=== PATIENT | male | born 1940 | race Caucasian/White ===

== ENCOUNTER 2017-05-30 09:58 | Inpatient (IN) ==
[2017-05-30 10:57] LABS: Basophils # (Auto) 0 K/mcL (0.0-0.3); Basophils % (Auto) 0.1 % (0.0-2.0); Eosinophils # (Auto) 0.1 K/mcL (0.0-0.7); Eosinophils % (Auto) 0.7 % (0.0-7.0); Granulocytes % (Auto) 76.8 % (38.0-78.0); Lymphocytes # (Auto) 0.9 K/mcL (1.5-4.8); Lymphocytes % (Auto) 10.2 % (15.5-49.0); Mean Cell Volume 88.6 fL (80.0-100.0); Mean Corpuscular HGB Conc 32.7 g/dL (31.0-36.0); Monocytes # (Auto) 1.1 K/mcL (0.1-0.9); Monocytes % (Auto) 12.2 % (1.0-12.0); Platelet Count 183 K/mcL (140-440); RBC 3.89 M/mcL (4.50-5.90)
--- NOTE | 2017-05-30 11:13 | XRay Report ---
CLINICAL INFORMATION: Wheezing and weakness COMPARISON: Two-view chest x-ray from 12/01/2014 and portable chest 10/19/2016 FINDINGS: Marked cardiomegaly is increased previous study. Automatic cardiac defibrillator and leads in stable satisfactory position. Mediastinal widening noted. Pulmonary vessels are mildly distended. There is minimal perihilar edema. Large infiltrate posterior right lower lobe noted Small bilateral pleural effusions noted. IMPRESSION: Moderate CHF Large infiltrate - right lower lobe Interpreted and Authenticated by: Paul Roberts 05/30/17
[2017-05-30 11:22] LABS: ALT/SGPT 19 U/l (0-40); Albumin 3.5 gm/dL (3.2-5.2); Albumin/Globulin Ratio 1.1 (1.0-2.3); Alkaline Phosphatase 72 U/L (39-117); Blood Urea Nitrogen 40 mg/dl (8-23)
[2017-05-30] MEDS ORDERED: LEVOFLOXACIN 500 MG/100 ML BAG IV ONE (11:46)
--- NOTE | 2017-05-30 12:35 | Internal Med History&Physical ---
Medical - H&P: HPI Patient information: Note initiated : 05/30/17 at 12:34 pm Service Date, if different from initiated Date: [] Patient: Vinh Meza 77 y/o M admitted on for Fever, SOB. Chief Complaint: [] History of present illness: Mr. Meza is a 77 year old man with a significant cardiac history, including IN with cardiac arrest and AICD placement in 1994, status post CABG, congestive heart failure, atrial fibrillation whose reports that he has had a mild cough for about 2 months now. He notes some time over that. He has felt a little short of breath with activities, but nothing too impressive. About 4 days ago, he did develop some increasing shortness of breath and increased chest congestion. His said he ran a temperature of 102.6 for a couple of days. He is bringing up phlegm only occasionally, which is brownish in color and may have some blood streaks. He has noticed increased dyspnea with exertion , but is not sure if he also has orthopnea. He also reports some mild abdominal discomfort, which is fairly diffuse, over the same.. He says he normally has 1-2 bowel movements a day, and last bowel movement was yesterday. He denies significant chest pain or palpitations. He last saw his threader operator probably in December of this year, in [place], Dr. Adhikari at [facility]. He thinks his last stress test was a few years ago, and believes that looked fine. ER evaluation showed a chest x-ray consistent with congestive heart failure as well as a fairly dense right lower lobe infiltrate. He does drop his O2 saturations into the 80s with even minimal exertion. He is now admitted for further workup and treatment. He otherwise denies headaches or dizziness, new eye or ear symptoms, sore throat , chest pain or palpitations, nausea or vomiting, diarrhea or constipation. 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 His chart says he has type 2 diabetes, but he and his are both fairly insistent that he has never had diabetes. Medical History Coronary artery disease, status post IN and arrest in 1994, status post 2 or 3 vessel CABG, history of ventricular tachycardia, status post AICD placement, now followed by Dr. Adhikari at [facility]. History of A. fib atrial fibrillation and systolic congestive heart failure. Long-term anticoagulation therapy, with both warfarin and Plavix and aspirin. His says cardiology no longer follows this, but his primary care doctor keeps his INR below 2. She says he was on Coumadin when he had some other type of cardiac event, and they added Plavix at that point. This was around the time of a pacemaker placement she believes. Peripheral neuropathy. History of colon polyps. Hypertension. history of osteoarthritis and chronic back pain. History of reported peripheral vascular disease, diagnosed in his legs not long ago. Acute sinusitis (Acute) Recent diagnosis of a left upper face basal cell carcinoma. Blepharitis (Acute) Clostridium difficile enterocolitis September 2016. Dysmetabolic syndrome X (Acute) Gastritis, acute (Acute) Nonspecific abdominal pain (Acute) Visual disturbance (Acute) ?? DMII (diabetes mellitus, type 2) (Chronic) Hyperlipidemia (Chronic) Stasis dermatitis of left lower extremity due to peripheral venous hypertension (Chronic) Pneumonia (Resolved) 12-01-2014: Dr. Simon Sepsis (Resolved) 12-01-2014: Dr. Simon Testosterone deficiency (Resolved) Total or mature cataract (Resolved) Surgical History H/O esophagogastroduodenoscopy (Resolved 02/12/14) History of appendectomy (Resolved) History of open heart surgery (Resolved) 2 vessel Hx of tonsillectomy (Resolved) S/P implantation of automatic cardioverter/defibrillator (AICD) (Resolved) S/P skin biopsy (Resolved 05/09/14) Left forehead Mohs Medication List Aspirin 81 mg daily clopidogrel 75 mg PO QDAY diphenhydramine (Benadryl) 25 mg PO QHS PRN furosemide 40 mg PO BID gabapentin 300 mg (3 x 100 mg) PO TID hydrocodone-acetaminophen 10-325 mg 1 tab PO Q4H PRN lisinopril 5 mg (1/2 x 10 mg) PO QDAY lorazepam 0.5 mg PO BID metoprolol succinate ER 100 mg PO BID polyethylene glycol 3350 527 GM PO DAILY PRN potassium chloride ER 10 mEq PO Q48H pravastatin 5 mg PO QHS warfarin (Coumadin) 5 mg PO QDAY Allergies/Adverse Reactions Patient appears to have had a reaction to Levaquin in the ER today. Family History Type 2 diabetes mellitus Hyperlipidemia Coronary artery disease. Social History smoking status: Former smoker, for approximately 30 years, quit around 1994. He has been using chewing tobacco since then. He does not use alcohol or drugs. He is and lives with his . They have 5 grown children. Medical - H&P: Meds Home Medications Medication Instructions Recorded Confirmed Type pravastatin 10 mg tablet 5 mg PO QHS tab 05/10/15 05/30/17 History lisinopril 10 mg tablet 5 mg PO QDAY #90 tab 08/10/16 05/30/17 Rx Polyethylene Glycol 3350 [Miralax] 527 gm PO DAILY PRN 09/29/16 05/30/17 History Potassium Chloride [K-Tab ER] 10 meq PO Q48H 09/29/16 05/30/17 History Levofloxacin [Levaquin] 500 mg PO Q48H #2 tab 10/22/16 05/30/17 Rx Vancomycin Oral Elham 500 mg PO Q6 #60 bottle 10/22/16 05/30/17 Rx diphenhydramine 25 mg capsule 25 mg PO QHS PRN #60 cap 11/04/16 05/30/17 Rx lorazepam 0.5 mg tablet 0.5 mg PO BID #60 tab 11/04/16 05/30/17 Rx metoprolol succinate ER 100 mg 100 mg PO BID #60 tab 11/24/16 05/30/17 Rx tablet,extended release 24 hr clopidogrel 75 mg tablet 75 mg PO QDAY #90 tab 02/23/17 05/30/17 Rx furosemide 40 mg tablet 40 mg PO BID #60 tab 03/23/17 05/30/17 Rx gabapentin 100 mg capsule 300 mg PO TID #90 cap 05/24/17 05/30/17 Rx hydrocodone 10 mg-acetaminophen 1 tab PO Q4H PRN #120 tab 05/26/17 05/30/17 Rx 325 mg tablet Aspirin [Adult Low Dose Aspirin EC] 81 mg PO DAILY 05/30/17 05/30/17 History Triamcinolone Cream 0.1% 15G 1 dose TOPICAL BID 05/30/17 05/30/17 History [Kenalog Cream 0.1%] Warfarin [Coumadin] 5 mg PO DAILY 05/30/17 05/30/17 History Allergies Allergy/AdvReac Type Severity Reaction Status Date / Time levofloxacin [From Levaquin] AdvReac Intermediate Rash Verified 05/30/17 13:25 Medical - H&P: Exam - Constitutional Vitals: Temp Pulse Resp BP Pulse Ox 97.6 F 72 16 131/81 96 05/30/17 12:09 05/30/17 12:01 05/30/17 12:01 05/30/17 12:01 05/30/17 12:01 On exam, the patient appears to be in moderate respiratory distress. He has a frequent, wet sounding, rather weak cough. He often closes his eyes. Head: Normocephalic, atraumatic. Ears: TMs and canals are clear. Eyes: PERRLA, EOMI, anicteric. Pharynx: He is missing most of his teeth, but has a few left in the lower jaw. Posterior pharynx appears clear. Pharynx is crowded. Neck: Is supple, without obvious JVD, lymphadenopathy, thyromegaly. He may have a soft right-sided carotid bruit, but the room was rather noisy so this is not definite. Cardiac exam: Shows an irregular rhythm, with what sounds like fairly frequent ectopy. I do not hear definite murmurs, rubs, gallops. Chest also shows a pacemaker present in the left upper chest. He also has a sternotomy scar from previous surgery. Lungs: He has fairly diffuse rhonchi and crackles heard throughout both lung osuna. Reading is somewhat labored. I do not hear definite wheezing. Abdomen: Is rather markedly obese and protuberant. There is no guarding or rebound, but he has vague diffuse tenderness. Bowel sounds are active. There is a tiny umbilical hernia noted. Shoemaker catheter is draining clear urine. Extremities: He has about 2+ pitting edema at the ankles, as well as chronic stasis dermatitis. Pulses are diminished. Neurologic: The patient is awake and alert, but seems to drift off occasionally. His answers are appropriate. He is otherwise calm and cooperative. Cranial nerves are grossly intact. Motor strength appears symmetric, but generally diminished. Medical - H&P: Reslt - Labs CBC & Chem 7: 05/30/17 10:20 05/30/17 10:20 Labs: Short CBC 05/30/17 Range/Units 10:20 WBC 9.1 (4.5-11.0) K/mcL Hgb 11.3 L (13.5-16.5) g/dL Hct 34.4 L (41.0-55.0) % Plt Count 183 (140-440) K/mcL BMP 05/30/17 10:20 Sodium 139 Potassium 4.2 Chloride 100 Carbon Dioxide 26 BUN 40 H Creatinine 1.7 H Glucose 114 H Calcium 9.0 Liver Function 05/30/17 Range/Units 10:20 Total Bilirubin 1.1 H (0.0-1.0) mg/dL AST 28 (0-37) U/l ALT 19 (0-40) U/l Alkaline Phosphatase 72 (39-117) U/L Albumin 3.5 (3.2-5.2) gm/dL May 30: On CBC differential, RDW is elevated at 17. Granulocyte count is normal. Lymphocyte count is low at 900. Monocyte count is mildly elevated at 1100. Pro time is 18, with INR of 1.5 ProBNP is elevated at 5300. Lactic acid is normal at 0.9 Pro-calcitonin is elevated at 5.73, consistent with sepsis. surveillance system monitor showing frequent ventricular ectopy, and occasional runs of what looks like V. tach. These terminate spontaneously. Temperature was 99.8. Pressure initially 118/69, but then dipped to 85/49, and most recent is 116/61. Respiratory rate around 20, and slightly labored. O2 saturation 94% on 3 L nasal cannula Baseline creatinine over the last year seems to fluctuate between 1.4 and 1.7. EKG: Shows what appears to be a paced rhythm with occasional ventricular ectopy. Left axis deviation. Waveforms are slightly different when compared to October 23, 2016, but the overall pattern is similar. Chest x-ray: Shows worsening cardiomegaly compared to December 2014 and September 2016. Cardiac defibrillator is noted. Mediastinal widening is noted. Pulmonary vessels are mildly distended consistent with CHF. There is a large posterior right lower lobe infiltrate noted with small bilateral pleural effusions noted. Medical - H&P: A/P (1) RLL pneumonia Current visit: Yes Status: Acute (2) Abdominal pain Current visit: Yes Status: Acute (3) Heart failure, systolic, with acute decompensation Current visit: No Status: Acute (4) long-term current use of anticoagulant therapy Current visit: No Status: Chronic (5) CAD (coronary artery disease) Current visit: No Status: Chronic (6) Hypertension, essential Current visit: No Status: Chronic - Narrative A/P Narrative: #1. Pulmonary/infectious disease. This patient presents with fever and x-ray evidence of right lower lobe pneumonia. He also has signs of early sepsis, with hypotension, fever, elevated pro-calcitonin. -Admit to telemetry. -Reviewed CODE STATUS: And for now he wants to be a full code. If he develops increasing respiratory distress, we will certainly try BiPAP initially. -I think he is at risk for aspiration, so elected to use Zosyn, in addition to Zithromax, for his community-acquired pneumonia. -Pulmonary toilet, bronchodilators, oxygen as needed. Incentive spirometry. -Check ABG. #2. Cardiac. -Patient also appears to have congestive heart failure exacerbation. Attempt mild diuresis with Lasix. Shoemaker catheter placed. Monitor on telemetry. Repeat troponin in 6 hours. Consider follow-up echocardiogram. -Coronary artery disease, ischemic cardiomyopathy, history of sudden and V. tach, history of A. fib. AICD is in place. Continue to monitor INR, but it sounds like they want him at a lower goal of perhaps 1.5. Continue Plavix and aspirin, as previously recommended by cardiology. Heart rate currently well controlled. Continue aspirin, pravastatin, Lasix, Plavix, lisinopril, metoprolol, warfarin. 3. CODE STATUS: Full code for now, his will act his POA. He would not want long-term life support. 4. DVT prophylaxis: Continue warfarin, Plavix, aspirin. 5. His chart indicates a history of diabetes, but the patient is quite adamant that he has not had diabetes. Monitor Accu-Cheks today, and discontinue if normal. 6. History of hypertension. Continue current medications, and monitor. Next 7. Peripheral neuropathy. Continue gabapentin. 8. Tobacco abuse. Patient has a past history of cigarette smoking, but has been using chewing tobacco for the last 20 years. I strongly encouraged him to quit this, and I reviewed the increased risk of head and neck cancers with the use of this. I strongly encouraged him to follow-up with a dentist sometime soon, for a thorough oral exam. -Offer NicoDerm patch. 9. Obesity. 10. GI. Patient complains of vague abdominal discomfort, and I am suspicious of possible underlying constipation. Check an abdominal film. 11. Renal. Patient presents with possible mild acute kidney injury on top of chronic kidney disease. Monitor closely, as we try to diurese him. Shoemaker catheter in place, for accurate output measurements. Today's visit has taken approximately 70 minutes to review his extensive old records, review his case with the ER MD, interview and examine him, review plan of care with the patient and his , as well as staff, and write orders.
[2017-05-30] MEDS ORDERED: ALBUTEROL SULFATE 2.5 MG/3 ML NEBULIZER NEB PRN (12:51)
[2017-05-30] MEDS ORDERED: ONDANSETRON 4 MG/2 ML VIAL IV PRN (12:51)
[2017-05-30] MEDS ORDERED: DEXTROSE 50% 50 ML VIAL IV PRN (12:51)
[2017-05-30] MEDS ORDERED: ACETAMINOPHEN 325 MG TABLET PO PRN (12:51)
[2017-05-30] MEDS ORDERED: DOCUSATE SODIUM 100 MG CAPSULE PO PRN (12:51)
[2017-05-30] MEDS ORDERED: DEXTROSE 31 GM ORAL.SUSP PO PRN (12:51)
[2017-05-30] MEDS ORDERED: MAGNESIUM HYDROXIDE 30 ML ORAL.SUSP PO PRN (12:51)
[2017-05-30] MEDS: FUROSEMIDE 100 MG/10 ML VIAL IV SCH ×2 (13:28→17:26)
[2017-05-30] MEDS: 0.9 % SODIUM CHLORIDE 10 ML SYRINGE IV SCH ×4 (13:30→21:31)
[2017-05-30] MEDS: ALBUTEROL SULFATE 2.5 MG/3 ML NEBULIZER NEB SCH ×2 (13:37→19:33)
[2017-05-30] MEDS ORDERED: WARFARIN 5 MG TABLET PO ONE (14:00)
[2017-05-30] MEDS: AZITHROMYCIN 250 MG in DEXTROSE 5% IN WATER 250 ML IV SCH (15:03)
--- NOTE | 2017-05-30 15:38 | Emergency Department Note ---
ED Note Addendum Note Addendum: I saw and discussed this patient with Karina GRIJALVA. I agree with her evaluation management documentation.
[2017-05-30 16:01] LABS: Magnesium 2.4 mg/dL (1.6-2.5)
[2017-05-30] MEDS: PIPERACILLIN SODIUM/TAZOBACTAM 3.375 GM in DEXTROSE 5% IN WATER 50 ML IV SCH ×2 (16:24→20:13)
--- NOTE | 2017-05-30 16:32 | XRay Report ---
CLINICAL INFORMATION: Abdominal pain COMPARISON: 08/26/2016 FINDINGS: The gas pattern is unremarkable. No free air, soft tissue mass or pathologic calcification or organomegaly IMPRESSION: Normal Interpreted and Authenticated by: Paul Roberts 05/30/17
[2017-05-30] MEDS: INSULIN LISPRO 1 UNIT/0.01 ML UNIT SQ SCH ×2 (17:25→20:27)
[2017-05-30] MEDS: NICOTINE 7 MG PATCH TOPICAL SCH (17:30)
[2017-05-30] MEDS ORDERED: POTASSIUM CHLORIDE 10 MEQ TABLET PO SCH (18:45)
[2017-05-30] MEDS ORDERED: POTASSIUM CHLORIDE 10 MEQ TABLET PO ONE (20:02)
[2017-05-30] MEDS ORDERED: HYDROcodone/APAP 10/325MG TABLET PO ONE (20:15)
[2017-05-30] MEDS ORDERED: POLYETHYLENE GLYCOL 3350 17 GM PACKET PO PRN (20:21)
[2017-05-30] MEDS: METOPROLOL SUCCINATE 50 MG TAB.XL.24H PO SCH (20:32)
[2017-05-30] MEDS: HEPARIN 5,000 UNIT/ML VIAL SQ SCH (20:33)
[2017-05-30] MEDS: GABAPENTIN 100 MG CAPSULE PO SCH (20:33)
[2017-05-30] MEDS: LORazepam 0.5 MG TABLET PO SCH (20:33)
[2017-05-30] MEDS: TRIAMCINOLONE CREAM 0.1% 15G 1 DOSE TUBE TOPICAL SCH (21:29)
[2017-05-30] MEDS: SIMVASTATIN 10 MG TABLET PO SCH (21:32)
[2017-05-31] MEDS: PIPERACILLIN SODIUM/TAZOBACTAM 3.375 GM in DEXTROSE 5% IN WATER 50 ML IV SCH ×4 (01:52→18:18)
[2017-05-31] MEDS: ALBUTEROL SULFATE 2.5 MG/3 ML NEBULIZER NEB SCH ×4 (01:53→18:48)
[2017-05-31] MEDS: 0.9 % SODIUM CHLORIDE 10 ML SYRINGE IV SCH ×7 (05:45→22:00)
[2017-05-31 05:51] LABS: Basophils # (Auto) 0 K/mcL (0.0-0.3); Basophils % (Auto) 0.3 % (0.0-2.0); Eosinophils # (Auto) 0.1 K/mcL (0.0-0.7); Eosinophils % (Auto) 0.9 % (0.0-7.0); Granulocytes % (Auto) 69.8 % (38.0-78.0); Lymphocytes # (Auto) 1.2 K/mcL (1.5-4.8); Lymphocytes % (Auto) 15.8 % (15.5-49.0); Mean Cell Volume 88.8 fL (80.0-100.0); Mean Corpuscular HGB Conc 32.9 g/dL (31.0-36.0); Mean Corpuscular Hemoglobin 29.2 pg (26.0-34.0); Monocytes % (Auto) 13.2 % (1.0-12.0); Platelet Count 164 K/mcL (140-440); RBC 3.59 M/mcL (4.50-5.90); Red Cell Distribution Width 17.1 % (11.5-14.5)
[2017-05-31 06:04] LABS: ALT/SGPT 24 U/l (0-40); Albumin 2.8 gm/dL (3.2-5.2); Albumin/Globulin Ratio 0.9 (1.0-2.3); Alkaline Phosphatase 71 U/L (39-117); Bilirubin,Direct 0.4 mg/dL (0.0-0.3); Blood Urea Nitrogen 38 mg/dl (8-23); Gamma Glutamyl Transpeptidase 99 U/L (8-61); Magnesium 2.4 mg/dL (1.6-2.5); Uric Acid 10.8 mg/dL (2.5-8.0)
[2017-05-31] MEDS: INSULIN LISPRO 1 UNIT/0.01 ML UNIT SQ SCH ×4 (07:56→20:46)
[2017-05-31] MEDS: FUROSEMIDE 100 MG/10 ML VIAL IV SCH ×2 (08:00→15:16)
[2017-05-31] MEDS ORDERED: POTASSIUM CHLORIDE 10 MEQ TABLET PO SCH (08:00)
--- NOTE | 2017-05-31 08:19 | XRay Report ---
CLINICAL INFORMATION: Pneumonia and CHF COMPARISON: 05/30/2017. FINDINGS: The heart is markedly enlarged - unchanged. Automatic defibrillator pacemaker in stable satisfactory position. Mediastinum is normal. The pulmonary vessels have decreased in caliber, remain mildly distended. Interstitial edema has decreased. Patchy bibasilar infiltrates have progressed IMPRESSION: Patchy bibasilar infiltrates - progressing from yesterday Improving CHF now mild Interpreted and Authenticated by: Paul Roberts 05/31/17
[2017-05-31] MEDS ORDERED: CLOPIDOGREL 75 MG TABLET PO SCH (09:00)
[2017-05-31] MEDS: ASPIRIN 81 MG TAB.CHEW PO SCH (09:14)
[2017-05-31] MEDS: METOPROLOL SUCCINATE 50 MG TAB.XL.24H PO SCH ×2 (09:18→20:44)
[2017-05-31] MEDS: CLOPIDOGREL 75 MG TABLET PO SCH (09:20)
[2017-05-31] MEDS: LISINOPRIL 10 MG TABLET PO SCH (09:21)
[2017-05-31] MEDS: GABAPENTIN 100 MG CAPSULE PO SCH ×3 (09:22→20:44)
[2017-05-31] MEDS: LORazepam 0.5 MG TABLET PO SCH ×2 (09:29→20:44)
[2017-05-31] MEDS: HEPARIN 5,000 UNIT/ML VIAL SQ SCH ×2 (09:30→20:44)
[2017-05-31] MEDS: AZITHROMYCIN 250 MG in DEXTROSE 5% IN WATER 250 ML IV SCH (09:31)
[2017-05-31] MEDS: TRIAMCINOLONE CREAM 0.1% 15G 1 DOSE TUBE TOPICAL SCH ×2 (09:52→20:44)
[2017-05-31] MEDS: NICOTINE 7 MG PATCH TOPICAL SCH (11:03)
--- NOTE | 2017-05-31 12:10 | Internal Med Progress Note ---
Medical - PN: Subj Patient information: Note initiated : 05/31/17 at 12:08 pm Service Date, if different from initiated Date: [] Patient: Vinh Meza 77 y/o M admitted on 05/30/17 for Fever, SOB/Pneumonia. Chief Complaint: [] Interval history: May 30, 2017: History of present illness: Mr. Meza is a 77 year old man with a significant cardiac history, including [place] with cardiac arrest and AICD placement in 1994, status post CABG, congestive heart failure, atrial fibrillation whose reports that he has had a mild cough for about 2 months now. He notes some time over that. He has felt a little short of breath with activities, but nothing too impressive. About 4 days ago, he did develop some increasing shortness of breath and increased chest congestion. His said he ran a temperature of 102.6 for a couple of days. He is bringing up phlegm only occasionally, which is brownish in color and may have some blood streaks. He has noticed increased dyspnea with exertion , but is not sure if he also has orthopnea. He also reports some mild abdominal discomfort, which is fairly diffuse, over the same.. He says he normally has 1-2 bowel movements a day, and last bowel movement was yesterday. He denies significant chest pain or palpitations. 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 Adhikari at [facility]. He thinks his last stress test was a few years ago, and believes that looked fine. ER evaluation showed a chest x-ray consistent with congestive heart failure as well as a fairly dense right lower lobe infiltrate. He does drop his O2 saturations into the 80s with even minimal exertion. He is now admitted for further workup and treatment. He otherwise denies headaches or dizziness, new eye or ear symptoms, sore throat , chest pain or palpitations, nausea or vomiting, diarrhea or constipation. 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 His chart says he has type 2 diabetes, but he and his are both fairly insistent that he has never had diabetes. May 31: Today, the patient continues to have significantly productive cough. He is bringing up greenish phlegm. Nurses note he continues to be fairly drowsy, and often falls asleep mid sentence. He is maintaining O2 saturations. He did diurese some overnight. He does wake up when he is spoken to, but is quite drifty. He denies fever or chills, chest pain or palpitations. He thinks his shortness of breath is better , and his thinks he sounds better than before. He denies abdominal pain, nausea or vomiting, diarrhea or constipation or dysuria. He did say that he was hungry this morning. -Nurses are somewhat concerned about the possibility of aspiration, given his lethargy. - Constitutional Vitals: Vital Signs Temp Pulse Resp BP Pulse Ox 98.4 F 70 20 112/67 93 05/31/17 11:32 05/31/17 07:27 05/31/17 07:27 05/31/17 12:01 05/31/17 12:04 Period Temp Pulse Resp BP Sys/Ornelas Pulse Ox Last 24 Hr 98.3 F-99.8 F 70-89 16-24 85-129/46-87 86-100 Intake and Output 05/30/17 05/31/17 05/31/17 21:59 05:59 13:59 Intake Total 530 / 530 200 / 200 400 / 400 Output Total 1300 / 1300 925 / 925 975 / 975 Balance -770 / -770 -725 / -725 -575 / -575 Weight 256 lb Intake & Output: Intake & Output 05/30/17 05/31/17 05/31/17 21:59 05:59 13:59 Intake Total 530 / 530 200 / 200 400 / 400 Output Total 1300 / 1300 925 / 925 975 / 975 Balance -770 / -770 -725 / -725 -575 / -575 Weight 256 lb Intake: IV 350 / 350 50 / 50 50 / 50 Zithromax 250 mg In 250 / 250 Dextrose 5% in Water 250 ml @ 250 mls/hr IV Q24H [facility] Rx#:[id number] Zosyn 3.375 gm In 100 / 100 50 / 50 50 / 50 Dextrose 5% in Water 50 ml @ 100 mls/hr IV Q6H [facility] Rx#:[id number] Oral 180 / 180 150 / 150 350 / 350 Output: Urine Catheter Amount 1300 / 1300 925 / 925 975 / 975 Other: Meal Dinner Breakfast Percent of Meal Consumed 100% 100% Feeding Ability Independent Independent # Bowel Movements 0 1 The patient is somewhat drowsy, but in no acute distress. He coughs frequently , but breathing appears nonlabored. O2 saturation is 93% on 2 L nasal cannula. He is afebrile. Neck is supple without obvious JVD or lymphadenopathy. Cardiac exam shows regular rate and rhythm. Lungs: Are less noisy than yesterday. He has decreased breath sounds at the right base. Breath sounds throughout the left side are rather coarse. Breath sounds on the right show a few crackles above the right base, and otherwise are fairly clear. Abdomen: Is obese, but soft and nontender. Extremities: Continue to show about 2+ pitting ankle edema. Neurologic exam: Patient is fairly drowsy, but exam is otherwise nonfocal. Medical - PN: Obj Da - Labs CBC & Chem 7: 05/31/17 03:48 05/31/17 03:48 Labs: Abnormal Lab Results 05/31/17 05/31/17 05/31/17 03:48 03:48 03:48 RBC 3.59 L Hgb 10.5 L Hct 31.9 L RDW 17.1 H [place] % (Auto) 13.2 H Lymph # (Auto) 1.2 L [place] # (Auto) 1.0 H PT 20.1 H INR 1.7 H BUN 38 H Creatinine 1.9 H Glucose 106 H Uric Acid 10.8 H Direct Bilirubin 0.4 H GGT 99 H Total Protein 5.8 L Albumin 2.8 L Albumin/Globulin Ratio 0.9 L May 31: Chest x-ray: CHF is improved. Patchy bibasilar infiltrates, look worse than yesterday. May 30: On CBC differential, RDW is elevated at 17. Granulocyte count is normal. Lymphocyte count is low at 900. Monocyte count is mildly elevated at 1100. Pro time is 18, with INR of 1.5 ProBNP is elevated at 5300. Lactic acid is normal at 0.9 Pro-calcitonin is elevated at 5.73, consistent with sepsis. athletic monitor showing frequent ventricular ectopy, and occasional runs of what looks like V. tach. These terminate spontaneously. Temperature was 99.8. Pressure initially 118/69, but then dipped to 85/49, and most recent is 116/61. Respiratory rate around 20, and slightly labored. O2 saturation 94% on 3 L nasal cannula Baseline creatinine over the last year seems to fluctuate between 1.4 and 1.7. EKG: Shows what appears to be a paced rhythm with occasional ventricular ectopy. Left axis deviation. Waveforms are slightly different when compared to October 23, 2016, but the overall pattern is similar. Chest x-ray: Shows worsening cardiomegaly compared to December 2014 and September 2016. Cardiac defibrillator is noted. Mediastinal widening is noted. Pulmonary vessels are mildly distended consistent with CHF. There is a large posterior right lower lobe infiltrate noted with small bilateral pleural effusions noted. Meds: Medications Acetaminophen (Tylenol) 650 mg PO Q6HP PRN PRN Reason: PAIN/FEVER > 101 Hydrocodone Bitart/Acetaminophen ([place] 10/325mg) 1 tab PO Q4H PRN PRN Reason: pain Albuterol Sulfate (Ventolin) 2.5 mg NEB Q4HRT PRN PRN Reason: Shortness Of Breath Or Wheezing Albuterol Sulfate (Ventolin) 2.5 mg NEB Q6HRT [facility] Last Admin: 05/31/17 07:13 Dose: 2.5 mg Aspirin (Aspirin) 81 mg PO DAILY [facility] Last Admin: 05/31/17 09:14 Dose: 81 mg Clopidogrel Bisulfate (Plavix) 75 mg PO DAILY [facility] Last Admin: 05/31/17 09:20 Dose: 75 mg Dextrose (Dextrose 50%) 0 ml IV UD PRN PRN Reason: Hypoglycemia Diagnostic Test (Pha) (Accu-Chek) 1 each FS ACHS [facility] Last Admin: 05/31/17 07:56 Dose: 1 each Docusate Sodium (Colace) 100 mg PO BID PRN PRN Reason: Constipation Furosemide (Lasix) 60 mg IV BIDD [facility] Last Admin: 05/31/17 08:00 Dose: 60 mg Gabapentin (Neurontin) 300 mg PO TID [facility] Last Admin: 05/31/17 09:22 Dose: 300 mg Glucose (Insta-Glucose) 15 gm PO PRN PRN PRN Reason: Hypoglycemia Heparin Sodium (Porcine) (Heparin) 5,000 unit SQ Q12 [facility] Last Admin: 05/31/17 09:30 Dose: 5,000 unit Azithromycin 250 mg/ Dextrose 250 mls @ 250 mls/hr IV Q24H [facility] Stop: 06/01/17 14:59 Last Admin: 05/31/17 09:31 Dose: 250 mls/hr Piperacillin Sod/Tazobactam (Sod 3.375 gm/ Dextrose) 50 mls @ 100 mls/hr IV Q6H [facility] Last Infusion: 05/31/17 06:15 Dose: Infused Insulin Human Lispro (Humalog) 0 unit SQ ACHS [facility] PRN Reason: Protocol Last Admin: 05/31/17 07:56 Dose: Not Given Lisinopril (Zestril) 5 mg PO QDAY [facility] Last Admin: 05/31/17 09:21 Dose: 5 mg Lorazepam (Ativan) 0.5 mg PO BID [facility] Last Admin: 05/31/17 09:29 Dose: 0.5 mg Magnesium Hydroxide (Milk Of Magnesia) 30 ml PO DAILYP PRN PRN Reason: Constipation Metoprolol Succinate (Toprol Xl) 100 mg PO BID [facility] Last Admin: 05/31/17 09:18 Dose: 100 mg Nicotine (Nicoderm) 7 mg TOPICAL DAILY@1000 [facility] Last Admin: 05/31/17 11:03 Dose: 7 mg Ondansetron HCl (Zofran) 4 mg IV Q4HP PRN PRN Reason: Nausea And Vomiting Polyethylene Glycol (Miralax) 17 gm PO HSP PRN PRN Reason: Constipation Potassium Chloride (Kdur) 10 meq PO Q48@0800 [facility] Last Admin: 05/31/17 07:57 Dose: 10 meq Simvastatin (Zocor) 5 mg PO HS [facility] Last Admin: 05/30/17 21:32 Dose: 5 mg Sodium Chloride (Saline Flush) 10 ml IV Q8 [facility] Last Admin: 05/31/17 09:32 Dose: 10 ml Triamcinolone Acetonide (Kenalog Cream 0.1%) 1 dose TOPICAL BID [facility] Last Admin: 05/31/17 09:52 Dose: 1 dose Warfarin Sodium (Coumadin Per Pharmacy) 1 order PO UD [facility] Medical - PN: A/P - Time Spent With Patient Total time spent is greater than 50% in coordination of care (as documented) at patient's floor/unit and/or counseling patient: Greater than 35 minutes (1) RLL pneumonia Status: Acute Current Visit: Yes (2) Abdominal pain Status: Acute Current Visit: Yes (3) Heart failure, systolic, with acute decompensation Status: Acute Current Visit: No (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 Pulmonary/infectious disease. This patient presents with fever and x-ray evidence of right lower lobe pneumonia. He also has signs of early sepsis, with hypotension, fever, elevated pro-calcitonin. -He sounds a little better today, but remains very sleepy, which is bothersome. He has significant pneumonia on his chest x-ray, but white blood cell count is not elevated. Am suspicious of pneumococcal pneumonia. Follow-up x-ray does show some improvement in the CHF today. -Continue Zosyn plus Zithromax for now. Blood and sputum cultures are pending. Monitor on telemetry. -Reviewed CODE STATUS: And for now he wants to be a full code. If he develops increasing respiratory distress, we will certainly try BiPAP initially. -I think he is at risk for aspiration, so elected to use Zosyn, in addition to Zithromax, for his community-acquired pneumonia. -Pulmonary toilet, bronchodilators, oxygen as needed. Incentive spirometry. -Speech therapy evaluation today. #2. Cardiac. -Patient also appears to have congestive heart failure exacerbation. He did diurese him overnight, and will continue with IV Lasix. Shoemaker catheter placed. Monitor on telemetry. Follow-up troponin looked okay. Consider follow-up echocardiogram. -Coronary artery disease, ischemic cardiomyopathy, history of sudden and V. tach, history of A. fib. AICD is in place. Continue to monitor INR, but it sounds like they want him at a lower goal of perhaps 1.5. Continue Plavix and aspirin, as previously recommended by cardiology. Heart rate currently well controlled. Continue aspirin, pravastatin, Lasix, Plavix, lisinopril, metoprolol, warfarin. 3. CODE STATUS: Full code for now, his will act his POA. He would not want long-term life support. 4. DVT prophylaxis: Continue warfarin, Plavix, aspirin. 5. His chart indicates a history of diabetes, but the patient is quite adamant that he has not had diabetes. -Accu-Cheks are ranging from 100-140. 6. History of hypertension. Continue current medications, and monitor. 7. Peripheral neuropathy. Continue gabapentin. 8. Tobacco abuse. Patient has a past history of cigarette smoking, but has been using chewing tobacco for the last 20 years. I strongly encouraged him to quit this, and I reviewed the increased risk of head and neck cancers with the use of this. I strongly encouraged him to follow-up with a dentist sometime soon, for a thorough oral exam. -Offered NicoDerm patch. 9. Obesity. 10. GI. Patient complains of vague abdominal discomfort, and I am suspicious of possible underlying constipation. Abdominal x-ray looked okay. 11. Renal. Patient presents with possible mild acute kidney injury on top of chronic kidney disease. Monitor closely, as we try to diurese him. Creatinine is a little higher today. Continue to monitor. Shoemaker catheter in place, for accurate output measurements. Approximately 35 minutes was spent today, reviewing patient's test results, reviewed plan of care with nursing staff, interviewing and examining the patient , reviewing plan of care with the patient and his , touching base with radiology about his x-ray, and writing orders Medical - PN: Qual - VTE Deep Vein Thrombosis/Pulmonary Embolism Present on Admission: No
[2017-05-31] MEDS: HYDROcodone/APAP 10/325MG TABLET PO PRN (15:15)
--- NOTE | 2017-05-31 18:12 | Emergency Department Note ---
SOB HPI - General Chief Complaint: Shortness of Breath/Dyspnea Stated Complaint: Fever, SOB Time Seen by Provider: 05/30/17 10:15 Source: patient, EMS Mode of arrival: ambulatory - History of Present Illness 77-year-old male presents with increasing shortness of breath over the last week as well as generalized weakness. His states he seems to be getting worse and worse. States he has short of breath at rest but much worse when or if he does not sit up. Positive chills. Unknown fever. No nausea, vomiting, or diarrhea. No chest pain. No leg pain. Does have some minimal pedal edema but states that is chronic. states his activity level has greatly decreased and he just wants to sleep all the time. No abdominal pain. No cough , sore throat, or ear pain. No headache. Associated symptoms: Reports: pain with inspiration, wheezing, orthopnea. Denies: chest pain, fever, cough, lower extremity pain, nausea/vomiting, syncope , abdominal pain, rash, sense of impending doom Treatment prior to arrival: none - Related Data Home Medications Medication Instructions Recorded Confirmed pravastatin 10 mg tablet 5 mg PO QHS tab 05/10/15 05/30/17 Polyethylene Glycol 3350 [Miralax] 527 gm PO DAILY PRN 09/29/16 05/30/17 Potassium Chloride [K-Tab ER] 10 meq PO Q48H 09/29/16 05/30/17 Aspirin [Adult Low Dose Aspirin EC] 81 mg PO DAILY 05/30/17 05/30/17 Triamcinolone Cream 0.1% 15G 1 dose TOPICAL BID 05/30/17 05/30/17 [Kenalog Cream 0.1%] Warfarin [Coumadin] 5 mg PO DAILY 05/30/17 05/30/17 Previous Rx's Medication Instructions Recorded lisinopril 10 mg tablet 5 mg PO QDAY #90 tab 08/10/16 diphenhydramine 25 mg capsule 25 mg PO QHS PRN #60 cap 11/04/16 lorazepam 0.5 mg tablet 0.5 mg PO BID #60 tab 11/04/16 metoprolol succinate ER 100 mg 100 mg PO BID #60 tab 11/24/16 tablet,extended release 24 hr clopidogrel 75 mg tablet 75 mg PO QDAY #90 tab 02/23/17 furosemide 40 mg tablet 40 mg PO BID #60 tab 03/23/17 gabapentin 100 mg capsule 300 mg PO TID #90 cap 05/24/17 hydrocodone 10 mg-acetaminophen 1 tab PO Q4H PRN #120 tab 05/26/17 325 mg tablet Allergies Allergy/AdvReac Type Severity Reaction Status Date / Time levofloxacin [From Levaquin] AdvReac Intermediate Rash Verified 05/30/17 13:25 Review of Systems All systems ED: reviewed and negative except as stated. Past Medical History - Past Medical History [facility] Narrative: Medical History (Last Updated 05/30/17 @ 16:42 by Sylvia Rodríguez MD ) Acute sinusitis (Acute) Nonspecific abdominal pain (Acute) Clostridium difficile enterocolitis (Acute) Congestive heart failure (Acute) Pulmonary edema with congestive heart failure (Acute) Bilateral lower extremity edema (Acute) Right middle lobe pneumonia (Acute) Heart failure, systolic, with acute decompensation (Acute) Stasis dermatitis of left lower extremity due to peripheral venous hypertension (Chronic) alf current use of anticoagulant therapy (Chronic) Ventricular tachycardia (Chronic) SOB (shortness of breath) (Acute) Visual disturbance (Acute) Ischemic heart disease (Chronic) Hypertension, essential (Chronic) Hyperlipidemia (Chronic) Gastritis, acute (Acute) Dysmetabolic syndrome X (Acute) DMII (diabetes mellitus, type 2) (Chronic) Cardiac defibrillator in place (Chronic) Cardiomyopathy, primary (Chronic) CAD (coronary artery disease) (Chronic) Blepharitis (Acute) Atrial fibrillation (Chronic) Atherosclerosis (Chronic) CAD in [place] artery (Resolved) Pneumonia (Resolved) Sepsis (Resolved) Testosterone deficiency (Resolved) Total or mature cataract (Resolved) Past Surgical History (Last Updated 03/17/17 @ 14:24 by [employer] [place]) H/O esophagogastroduodenoscopy (Resolved 02/12/14) History of appendectomy (Resolved) History of open heart surgery (Resolved) Hx of tonsillectomy (Resolved) S/P implantation of automatic cardioverter/defibrillator (AICD) (Resolved) S/P skin biopsy (Resolved 05/09/14) Medical history: Reports: atrial fibrillation, coronary artery disease, diabetes , hyperlipidemia, hypertension, other Surgical history ED: Reports: appendectomy, coronary bypass (CABG), pacemaker/ AICD, tonsillectomy, other - Social History smoking status: Unknown if ever smoked Alcohol use: Reports: None Drug use: Reports: none Physical Exam - General Limitations: no limitations General appearance: alert, in no apparent distress, other (Sleepy, having a hard time staying awake) - Head Head exam: atraumatic, normocephalic, normal inspection - Eye Eye exam: Present: normal appearance. Absent: conjunctival injection - ENT ENT exam: normal oropharynx, mucous membranes moist, TM's normal bilaterally, normal external ear exam - Neck Neck exam: Present: normal inspection, full ROM, trachea midline. Absent: tenderness, lymphadenopathy - Chest Chest inspection: Present: normal inspection, symmetric chest wall rise - Respiratory Respiratory exam: Present: wheezes (Faint right lower lobe expiratory wheezing and lung sounds diminished in bases bilaterally.). Absent: respiratory distress , accessory muscle use - Cardiovascular Cardiovascular exam: Present: regular rate, normal heart sounds - Abdominal Exam Abdominal exam: Present: soft, normal bowel sounds. Absent: distention, tenderness, guarding - Extremities Exam Extremities exam: Present: full ROM, normal capillary refill, pedal edema (1+ bilaterally. Nonpitting). Absent: tenderness, joint swelling, calf tenderness - Neurological Exam Neurological exam: Present: alert, oriented X3 (Alert and oriented but sleepy) - Psychiatric Psychiatric exam: Present: normal affect, normal mood - Skin Skin exam: Present: warm, dry, intact, normal color. Absent: rash, cyanosis, diaphoresis Course Course Narrative: Patient with moderate CHF and right lower lobe infiltrate on chest x-ray. Spoke with Dr. Gallegos who agrees to admit patient. IV antibiotics started. Vital Signs Temperature 98.5 F 05/30/17 09:58 Pulse Rate 74 05/30/17 09:58 Respiratory Rate 20 05/30/17 09:58 Blood Pressure 118/69 05/30/17 09:58 Pulse Oximetry (%) 94 05/30/17 09:58 Temperature 98.4 F 05/31/17 11:32 Pulse Rate 73 05/31/17 13:55 Respiratory Rate 18 05/31/17 13:55 Blood Pressure 112/67 05/31/17 12:01 Pulse Oximetry (%) 93 05/31/17 12:04 Shortness of Breath/Dyspnea - Lab Data Lab results reviewed: Yes I reviewed the patient's lab results. Result diagrams: 05/31/17 03:48 05/31/17 03:48 Lab Results 05/30/17 05/30/17 05/30/17 Range/Units 10:20 10:20 10:20 WBC 9.1 (4.5-11.0) K/mcL RBC 3.89 L (4.50-5.90) M/mcL Hgb 11.3 L (13.5-16.5) g/dL Hct 34.4 L (41.0-55.0) % MCV 88.6 (80.0-100.0) fL MCH 29.0 (26.0-34.0) pg MCHC 32.7 (31.0-36.0) g/dL RDW 17.0 H (11.5-14.5) % Plt Count 183 (140-440) K/mcL MPV 8.5 (7.4-10.4) fL Gran % 76.8 (38.0-78.0) % Lymph % (Auto) 10.2 L (15.5-49.0) % [place] % (Auto) 12.2 H (1.0-12.0) % Eos % (Auto) 0.7 (0.0-7.0) % Baso % (Auto) 0.1 (0.0-2.0) % Gran # 7.0 (1.8-8.0) K/mcL Lymph # (Auto) 0.9 L (1.5-4.8) K/mcL [place] # (Auto) 1.1 H (0.1-0.9) K/mcL Eos # (Auto) 0.1 (0.0-0.7) K/mcL Baso # (Auto) 0 (0.0-0.3) K/mcL PT (11.9-14.5) sec INR (0.9-1.1) VBG Lactic Acid (0.5-2.2) mmol/L Sodium 139 (133-145) mmol/L Potassium 4.2 (3.3-5.1) mmol/L Chloride 100 (96-108) mmol/L Carbon Dioxide 26 (22-30) mmol/L Anion Gap 13.0 (8-16) BUN 40 H (8-23) mg/dl Creatinine 1.7 H (0.7-1.2) mg/dl GFR Calculation 38 Glucose 114 H (70-105) mg/dL Calcium 9.0 (8.6-10.4) mg/dl Total Bilirubin 1.1 H (0.0-1.0) mg/dL AST 28 (0-37) U/l ALT 19 (0-40) U/l Alkaline Phosphatase 72 (39-117) U/L Troponin T (0-0.03) ng/ml NT-Pro-B Natriuret Pep 5307.0 H (0-450) pg/ml Total Protein 6.6 (5.9-8.4) gm/dL Albumin 3.5 (3.2-5.2) gm/dL Globulin 3.1 (2.2-3.7) gm/dL Albumin/Globulin Ratio 1.1 (1.0-2.3) 05/30/17 05/30/17 05/30/17 Range/Units 10:20 10:20 11:44 WBC (4.5-11.0) K/mcL RBC (4.50-5.90) M/mcL Hgb (13.5-16.5) g/dL Hct (41.0-55.0) % MCV (80.0-100.0) fL MCH (26.0-34.0) pg MCHC (31.0-36.0) g/dL RDW (11.5-14.5) % Plt Count (140-440) K/mcL MPV (7.4-10.4) fL Gran % (38.0-78.0) % Lymph % (Auto) (15.5-49.0) % [place] % (Auto) (1.0-12.0) % Eos % (Auto) (0.0-7.0) % Baso % (Auto) (0.0-2.0) % Gran # (1.8-8.0) K/mcL Lymph # (Auto) (1.5-4.8) K/mcL [place] # (Auto) (0.1-0.9) K/mcL Eos # (Auto) (0.0-0.7) K/mcL Baso # (Auto) (0.0-0.3) K/mcL PT 18.1 H (11.9-14.5) sec INR 1.5 H (0.9-1.1) VBG Lactic Acid 0.9 (0.5-2.2) mmol/L Sodium (133-145) mmol/L Potassium (3.3-5.1) mmol/L Chloride (96-108) mmol/L Carbon Dioxide (22-30) mmol/L Anion Gap (8-16) BUN (8-23) mg/dl Creatinine (0.7-1.2) mg/dl GFR Calculation Glucose (70-105) mg/dL Calcium (8.6-10.4) mg/dl Total Bilirubin (0.0-1.0) mg/dL AST (0-37) U/l ALT (0-40) U/l Alkaline Phosphatase (39-117) U/L Troponin T 0.01 (0-0.03) ng/ml NT-Pro-B Natriuret Pep (0-450) pg/ml Total Protein (5.9-8.4) gm/dL Albumin (3.2-5.2) gm/dL Globulin (2.2-3.7) gm/dL Albumin/Globulin Ratio (1.0-2.3) - Radiology Data Radiology results reviewed: Yes I reviewed the patient's radiology results. - EKG Data EKG attestation: Yes I reviewed and interpreted this EKG. Disposition Pt seen by HOSPICE ART THERAPIST/PA only: No Clinical Impression: CHF (congestive heart failure), Pneumonia Disposition: Xfer As Inpt ([facility]) Condition: Fair
[2017-05-31] MEDS: SIMVASTATIN 10 MG TABLET PO SCH (20:44)
[2017-06-01] MEDS: PIPERACILLIN SODIUM/TAZOBACTAM 3.375 GM in DEXTROSE 5% IN WATER 50 ML IV SCH ×4 (01:05→18:36)
[2017-06-01] MEDS: ALBUTEROL SULFATE 2.5 MG/3 ML NEBULIZER NEB SCH ×4 (01:06→19:16)
[2017-06-01 05:36] LABS: Basophils # (Auto) 0 K/mcL (0.0-0.3); Basophils % (Auto) 0.5 % (0.0-2.0); Eosinophils # (Auto) 0.1 K/mcL (0.0-0.7); Eosinophils % (Auto) 1.8 % (0.0-7.0); Granulocytes % (Auto) 68.6 % (38.0-78.0); Lymphocytes # (Auto) 1.3 K/mcL (1.5-4.8); Lymphocytes % (Auto) 15.6 % (15.5-49.0); Mean Cell Volume 88.1 fL (80.0-100.0); Mean Corpuscular HGB Conc 33.3 g/dL (31.0-36.0); Mean Corpuscular Hemoglobin 29.4 pg (26.0-34.0); Monocytes # (Auto) 1.1 K/mcL (0.1-0.9); Monocytes % (Auto) 13.5 % (1.0-12.0); Platelet Count 209 K/mcL (140-440); RBC 3.94 M/mcL (4.50-5.90); Red Cell Distribution Width 16.9 % (11.5-14.5)
[2017-06-01 06:08] LABS: ALT/SGPT 28 U/l (0-40); Albumin 3.4 gm/dL (3.2-5.2); Albumin/Globulin Ratio 1.1 (1.0-2.3); Alkaline Phosphatase 77 U/L (39-117); Bilirubin,Direct 0.5 mg/dL (0.0-0.3); Blood Urea Nitrogen 36 mg/dl (8-23); Gamma Glutamyl Transpeptidase 116 U/L (8-61); Magnesium 2.4 mg/dL (1.6-2.5); Uric Acid 9.5 mg/dL (2.5-8.0)
--- NOTE | 2017-06-01 06:13 | Internal Med Progress Note ---
Medical - PN: Subj Patient information: Note initiated : 06/01/17 at 6:09 am Service Date, if different from initiated Date: [] Patient: Vinh Meza 77 y/o M admitted on 05/30/17 for Fever, SOB/Pneumonia. Chief Complaint: [] Interval history: May 30, 2017: History of present illness: Mr. Meza is a 77 year old man with a significant cardiac history, including CT with cardiac arrest and AICD placement in 1994, status post CABG, congestive heart failure, atrial fibrillation whose reports that he has had a mild cough for about 2 months now. He notes some time over that. He has felt a little short of breath with activities, but nothing too impressive. About 4 days ago, he did develop some increasing shortness of breath and increased chest congestion. His said he ran a temperature of 102.6 for a couple of days. He is bringing up phlegm only occasionally, which is brownish in color and may have some blood streaks. He has noticed increased dyspnea with exertion , but is not sure if he also has orthopnea. He also reports some mild abdominal discomfort, which is fairly diffuse, over the same.. He says he normally has 1-2 bowel movements a day, and last bowel movement was yesterday. He denies significant chest pain or palpitations. He last saw his tours hostess probably in December of this year, in [place], Dr. Adhikari at [facility]. He thinks his last stress test was a few years ago, and believes that looked fine. ER evaluation showed a chest x-ray consistent with congestive heart failure as well as a fairly dense right lower lobe infiltrate. He does drop his O2 saturations into the 80s with even minimal exertion. He is now admitted for further workup and treatment. He otherwise denies headaches or dizziness, new eye or ear symptoms, sore throat , chest pain or palpitations, nausea or vomiting, diarrhea or constipation. 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 His chart says he has type 2 diabetes, but he and his are both fairly insistent that he has never had diabetes. May 31: Today, the patient continues to have significantly productive cough. He is bringing up greenish phlegm. Nurses note he continues to be fairly drowsy, and often falls asleep mid sentence. He is maintaining O2 saturations. He did diurese some overnight. He does wake up when he is spoken to, but is quite drifty. He denies fever or chills, chest pain or palpitations. He thinks his shortness of breath is better , and his thinks he sounds better than before. He denies abdominal pain, nausea or vomiting, diarrhea or constipation or dysuria. He did say that he was hungry this morning. -Nurses are somewhat concerned about the possibility of aspiration, given his lethargy. 06/01: Seen by JEWELRY SALES REPRESENTATIVE yesterday and with compensatory swallowing strategies had less coughing with eating. HH JEWELRY SALES REPRESENTATIVE recommended. He is net neg 1.5L. Labs are stable. Sputum cx was contaminated with epithelial cells and gram stain shows mixed shelton. He is more awake today and continues to have a productive cough. Will attempt Shoemaker removal today. Pertinent ROS: no fever or nausea - Constitutional Vitals: Vital Signs Temp Pulse Resp BP Pulse Ox 97.5 F 74 20 144/86 94 06/01/17 03:30 05/31/17 18:52 06/01/17 03:30 06/01/17 03:30 06/01/17 05:52 Period Temp Pulse Resp BP Sys/Ornelas Pulse Ox Last 24 Hr 97.5 F-99.3 F 70-76 16-24 85-144/47-86 86-100 Intake and Output 05/31/17 06/01/17 06/01/17 21:59 05:59 13:59 Intake Total 440 / 440 100 / 100 Output Total 650 / 650 1150 / 1150 Balance -210 / -210 -1050 / -1050 Weight 251 lb 14.4 oz Intake & Output: Intake & Output 05/31/17 06/01/17 06/01/17 21:59 05:59 13:59 Intake Total 440 / 440 100 / 100 Output Total 650 / 650 1150 / 1150 Balance -210 / -210 -1050 / -1050 Weight 251 lb 14.4 oz Intake: IV 50 / 50 50 / 50 Zosyn 3.375 gm In 50 / 50 50 / 50 Dextrose 5% in Water 50 ml @ 100 mls/hr IV Q6H [facility] Rx#:[id number] Oral 390 / 390 50 / 50 Output: Urine Catheter Amount 650 / 650 1150 / 1150 Other: Meal Dinner Percent of Meal Consumed 100% Feeding Ability Assist with Tray Set Up Exam: General: No acute distress. Hoarse voice. Obese, pleasant Respiratory: Bilateral wheezing with coarse rhonchi on the right base. CV: Regular rate and rhythm Abdomen: Obese, protuberant. Nontender. Hypoactive bowel tones : Shoemaker present Extremities: No clubbing cyanosis or edema. Neuro: Alert and oriented 3. Cranial nerves II through XII are intact. No focal motor sensory deficits. Medical - PN: Obj Da - Labs CBC & Chem 7: 06/01/17 04:02 06/01/17 04:02 Labs: Abnormal Lab Results 06/01/17 06/01/17 05/31/17 04:02 04:02 03:48 RBC 3.94 L Hgb 11.6 L Hct 34.8 L RDW 16.9 H [place] % (Auto) 13.5 H Lymph # (Auto) 1.3 L [place] # (Auto) 1.1 H PT 20.1 H INR 1.7 H BUN 36 H Creatinine 1.8 H Glucose 107 H Uric Acid 9.5 H Direct Bilirubin 0.5 H GGT 116 H Total Protein Albumin Albumin/Globulin Ratio 05/31/17 05/31/17 03:48 03:48 RBC 3.59 L Hgb 10.5 L Hct 31.9 L RDW 17.1 H [place] % (Auto) 13.2 H Lymph # (Auto) 1.2 L [place] # (Auto) 1.0 H PT INR BUN 38 H Creatinine 1.9 H Glucose 106 H Uric Acid 10.8 H Direct Bilirubin 0.4 H GGT 99 H Total Protein 5.8 L Albumin 2.8 L Albumin/Globulin Ratio 0.9 L Meds: Medications Acetaminophen (Tylenol) 650 mg PO Q6HP PRN PRN Reason: PAIN/FEVER > 101 Hydrocodone Bitart/Acetaminophen ([place] 10/325mg) 1 tab PO Q4H PRN PRN Reason: pain Last Admin: 05/31/17 15:15 Dose: 1 tab Albuterol Sulfate (Ventolin) 2.5 mg NEB Q4HRT PRN PRN Reason: Shortness Of Breath Or Wheezing Albuterol Sulfate (Ventolin) 2.5 mg NEB Q6HRT [facility] Last Admin: 06/01/17 01:06 Dose: 2.5 mg Aspirin (Aspirin) 81 mg PO DAILY [facility] Last Admin: 05/31/17 09:14 Dose: 81 mg Clopidogrel Bisulfate (Plavix) 75 mg PO DAILY [facility] Last Admin: 05/31/17 09:20 Dose: 75 mg Dextrose (Dextrose 50%) 0 ml IV UD PRN PRN Reason: Hypoglycemia Diagnostic Test (Pha) (Accu-Chek) 1 each FS ACHS [facility] Last Admin: 05/31/17 20:45 Dose: 1 each Docusate Sodium (Colace) 100 mg PO BID PRN PRN Reason: Constipation Furosemide (Lasix) 60 mg IV BIDD [facility] Last Admin: 05/31/17 15:16 Dose: 60 mg Gabapentin (Neurontin) 300 mg PO TID [facility] Last Admin: 05/31/17 20:44 Dose: 300 mg Glucose (Insta-Glucose) 15 gm PO PRN PRN PRN Reason: Hypoglycemia Heparin Sodium (Porcine) (Heparin) 5,000 unit SQ Q12 [facility] Last Admin: 05/31/17 20:44 Dose: 5,000 unit Azithromycin 250 mg/ Dextrose 250 mls @ 250 mls/hr IV Q24H [facility] Stop: 06/01/17 14:59 Last Infusion: 05/31/17 10:45 Dose: Infused Piperacillin Sod/Tazobactam (Sod 3.375 gm/ Dextrose) 50 mls @ 100 mls/hr IV Q6H [facility] Last Admin: 06/01/17 05:44 Dose: 100 mls/hr Insulin Human Lispro (Humalog) 0 unit SQ [facility] PRN Reason: Protocol Last Admin: 05/31/17 20:46 Dose: Not Given Lisinopril (Zestril) 5 mg PO QDAY [facility] Last Admin: 05/31/17 09:21 Dose: 5 mg Lorazepam (Ativan) 0.5 mg PO BID [facility] Last Admin: 05/31/17 20:44 Dose: 0.5 mg Magnesium Hydroxide (Milk Of Magnesia) 30 ml PO DAILYP PRN PRN Reason: Constipation Metoprolol Succinate (Toprol Xl) 100 mg PO BID [facility] Last Admin: 05/31/17 20:44 Dose: 100 mg Nicotine (Nicoderm) 7 mg TOPICAL DAILY@1000 [facility] Last Admin: 05/31/17 11:03 Dose: 7 mg Ondansetron HCl (Zofran) 4 mg IV Q4HP PRN PRN Reason: Nausea And Vomiting Polyethylene Glycol (Miralax) 17 gm PO HSP PRN PRN Reason: Constipation Potassium Chloride (Kdur) 10 meq PO Q48@0800 [facility] Last Admin: 05/31/17 07:57 Dose: 10 meq Simvastatin (Zocor) 5 mg PO HS [facility] Last Admin: 05/31/17 20:44 Dose: 5 mg Sodium Chloride (Saline Flush) 10 ml IV Q8 [facility] Last Admin: 05/31/17 22:00 Dose: 10 ml Triamcinolone Acetonide (Kenalog Cream 0.1%) 1 dose TOPICAL BID [facility] Last Admin: 05/31/17 20:44 Dose: 1 dose Warfarin Sodium (Coumadin Per Pharmacy) 1 order PO UD [facility] Medical - PN: A/P - Time Spent With Patient Total time spent is greater than 50% in coordination of care (as documented) at patient's floor/unit and/or counseling patient: 25 - 35 minutes - Narrative A/P Narrative: # Right lower lobe pneumonia--presented with sepsis, hypotension, fever, infiltrate on CXR and +PCT. No leukocytosis. Noted to have aspiration risks and JEWELRY SALES REPRESENTATIVE following. Follow-up x-ray does show some improvement in the CHF 05/31. -Continue Zosyn for anaerobe coverage (Unasyn not available) to end on 06/03 and Zithromax to end today; when improving further consider de-escalating to po Augmentin. F/U Blood and sputum cultures. Monitor on telemetry. -Dr. Gallegos reviewed CODE STATUS: And for now he wants to be a full code. If he develops increasing respiratory distress, we will certainly try BiPAP initially. -Pulmonary toilet, bronchodilators, oxygen as needed. Incentive spirometry. #Acute CHF exacerbation. Likely 2/2 PNA/hypoxia. Troponin nl. cont diuresis with IV Lasix. Increase Kdur to 20 QD. F/U lytes. Shoemaker catheter placed. Monitor on telemetry. #Coronary artery disease, ischemic cardiomyopathy, history of sudden and V. tach, history of A. fib. AICD is in place. Continue to monitor INR, but it sounds like they want him at a lower goal of perhaps 1.5. Continue Plavix and aspirin, as previously recommended by cardiology. Heart rate currently well controlled. Continue aspirin, pravastatin, Lasix, Plavix, lisinopril, metoprolol, warfarin. # Questionable h/o DM. -Pt denies. BG controlled without insulin. CTM # hypertension. Continue current medications, and monitor. Currently controlled #Peripheral neuropathy. Continue gabapentin. #Tobacco abuse. s/p smoking cessation -Offered NicoDerm patch. # Obesity. #CKD 3--baseline Cr 1.5-1.7. Cr 1.8 today. Monitor w diuresis. Avoid nephrotoxins; renally dose meds as needed. #CODE STATUS: Full code for now, his will act his POA. He would not want long-term life support. # DVT prophylaxis: Continue warfarin, Plavix, aspirin. Medical - PN: Qual - VTE Deep Vein Thrombosis/Pulmonary Embolism Present on Admission: No
[2017-06-01] MEDS: 0.9 % SODIUM CHLORIDE 10 ML SYRINGE IV SCH ×3 (06:45→22:27)
[2017-06-01] MEDS: AZITHROMYCIN 250 MG in DEXTROSE 5% IN WATER 250 ML IV SCH (09:07)
[2017-06-01] MEDS: INSULIN LISPRO 1 UNIT/0.01 ML UNIT SQ SCH ×4 (12:03→21:04)
[2017-06-01] MEDS: FUROSEMIDE 100 MG/10 ML VIAL IV SCH ×2 (12:03→20:48)
[2017-06-01] MEDS: POTASSIUM CHLORIDE 20 MEQ TABLET PO SCH (12:03)
[2017-06-01] MEDS: TRIAMCINOLONE CREAM 0.1% 15G 1 DOSE TUBE TOPICAL SCH ×2 (12:04→21:04)
[2017-06-01] MEDS: ASPIRIN 81 MG TAB.CHEW PO SCH (12:04)
[2017-06-01] MEDS: HEPARIN 5,000 UNIT/ML VIAL SQ SCH ×2 (12:04→21:03)
[2017-06-01] MEDS: LORazepam 0.5 MG TABLET PO SCH (12:04)
[2017-06-01] MEDS: GABAPENTIN 100 MG CAPSULE PO SCH ×3 (12:06→21:05)
[2017-06-01] MEDS: METOPROLOL SUCCINATE 50 MG TAB.XL.24H PO SCH ×2 (12:07→21:05)
[2017-06-01] MEDS: CLOPIDOGREL 75 MG TABLET PO SCH (12:07)
[2017-06-01] MEDS: LISINOPRIL 10 MG TABLET PO SCH (12:07)
[2017-06-01] MEDS: NICOTINE 7 MG PATCH TOPICAL SCH (12:08)
[2017-06-01] MEDS ORDERED: WARFARIN 5 MG TABLET PO ONE (14:00)
[2017-06-01] MEDS: SIMVASTATIN 10 MG TABLET PO SCH (21:05)
[2017-06-02] MEDS: PIPERACILLIN SODIUM/TAZOBACTAM 3.375 GM in DEXTROSE 5% IN WATER 50 ML IV SCH ×4 (00:04→17:28)
[2017-06-02] MEDS: ALBUTEROL SULFATE 2.5 MG/3 ML NEBULIZER NEB SCH ×4 (00:34→19:10)
[2017-06-02 05:48] LABS: Basophils # (Auto) 0.1 K/mcL (0.0-0.3); Basophils % (Auto) 0.6 % (0.0-2.0); Eosinophils # (Auto) 0.2 K/mcL (0.0-0.7); Eosinophils % (Auto) 2.4 % (0.0-7.0); Granulocytes % (Auto) 69.8 % (38.0-78.0); Lymphocytes # (Auto) 1.3 K/mcL (1.5-4.8); Lymphocytes % (Auto) 14.6 % (15.5-49.0); Mean Cell Volume 87.6 fL (80.0-100.0); Mean Corpuscular HGB Conc 33.1 g/dL (31.0-36.0); Monocytes # (Auto) 1.1 K/mcL (0.1-0.9); Monocytes % (Auto) 12.6 % (1.0-12.0); Platelet Count 251 K/mcL (140-440); RBC 3.99 M/mcL (4.50-5.90); Red Cell Distribution Width 17.5 % (11.5-14.5)
[2017-06-02] MEDS: 0.9 % SODIUM CHLORIDE 10 ML SYRINGE IV SCH ×2 (05:48→14:45)
[2017-06-02 06:17] LABS: ALT/SGPT 25 U/l (0-40); Albumin/Globulin Ratio 0.8 (1.0-2.3); Alkaline Phosphatase 87 U/L (39-117); Bilirubin,Direct 0.3 mg/dL (0.0-0.3); Blood Urea Nitrogen 42 mg/dl (8-23); Gamma Glutamyl Transpeptidase 144 U/L (8-61); Magnesium 2.5 mg/dL (1.6-2.5); Uric Acid 8.9 mg/dL (2.5-8.0)
[2017-06-02] MEDS: HEPARIN 5,000 UNIT/ML VIAL SQ SCH ×2 (08:04→20:38)
[2017-06-02] MEDS: FUROSEMIDE 100 MG/10 ML VIAL IV SCH (08:04)
[2017-06-02] MEDS: GABAPENTIN 100 MG CAPSULE PO SCH ×3 (08:04→20:39)
[2017-06-02] MEDS: LISINOPRIL 10 MG TABLET PO SCH ×2 (08:05→10:06)
[2017-06-02] MEDS: CLOPIDOGREL 75 MG TABLET PO SCH (08:05)
[2017-06-02] MEDS: ASPIRIN 81 MG TAB.CHEW PO SCH (08:05)
[2017-06-02] MEDS: METOPROLOL SUCCINATE 50 MG TAB.XL.24H PO SCH ×2 (08:05→10:05)
[2017-06-02] MEDS: POTASSIUM CHLORIDE 20 MEQ TABLET PO SCH (08:05)
[2017-06-02] MEDS: TRIAMCINOLONE CREAM 0.1% 15G 1 DOSE TUBE TOPICAL SCH ×2 (08:05→20:39)
[2017-06-02] MEDS: INSULIN LISPRO 1 UNIT/0.01 ML UNIT SQ SCH ×3 (09:23→17:03)
[2017-06-02] MEDS: NICOTINE 7 MG PATCH TOPICAL SCH (11:13)
[2017-06-02] MEDS ORDERED: VANCOMYCIN PER PHARMACY IV SCH (12:10)
[2017-06-02] MEDS ORDERED: VANCOMYCIN 1,500 MG in 0.9 % SODIUM CHLORIDE 500 ML IV SCH (13:00)
--- NOTE | 2017-06-02 13:14 | Internal Med Progress Note ---
Medical - PN: Subj Patient information: Note initiated : 06/02/17 at 1:12 pm Service Date, if different from initiated Date: [] Patient: Vinh Meza 77 y/o M admitted on 05/30/17 for Fever, SOB/Pneumonia. Chief Complaint: [] Interval history: May 30, 2017: History of present illness: Mr. Meza is a 77 year old man with a significant cardiac history, including [place] with cardiac arrest and AICD placement in 1994, status post CABG, congestive heart failure, atrial fibrillation whose reports that he has had a mild cough for about 2 months now. He notes some time over that. He has felt a little short of breath with activities, but nothing too impressive. About 4 days ago, he did develop some increasing shortness of breath and increased chest congestion. His said he ran a temperature of 102.6 for a couple of days. He is bringing up phlegm only occasionally, which is brownish in color and may have some blood streaks. He has noticed increased dyspnea with exertion , but is not sure if he also has orthopnea. He also reports some mild abdominal discomfort, which is fairly diffuse, over the same.. He says he normally has 1-2 bowel movements a day, and last bowel movement was yesterday. He denies significant chest pain or palpitations. He last saw his cleat blanker probably in December of this year, in [place], Dr. Adhikari at [facility]. He thinks his last stress test was a few years ago, and believes that looked fine. ER evaluation showed a chest x-ray consistent with congestive heart failure as well as a fairly dense right lower lobe infiltrate. He does drop his O2 saturations into the 80s with even minimal exertion. He is now admitted for further workup and treatment. He otherwise denies headaches or dizziness, new eye or ear symptoms, sore throat , chest pain or palpitations, nausea or vomiting, diarrhea or constipation. 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 His chart says he has type 2 diabetes, but he and his are both fairly insistent that he has never had diabetes. May 31: Today, the patient continues to have significantly productive cough. He is bringing up greenish phlegm. Nurses note he continues to be fairly drowsy, and often falls asleep mid sentence. He is maintaining O2 saturations. He did diurese some overnight. He does wake up when he is spoken to, but is quite drifty. He denies fever or chills, chest pain or palpitations. He thinks his shortness of breath is better , and his thinks he sounds better than before. He denies abdominal pain, nausea or vomiting, diarrhea or constipation or dysuria. He did say that he was hungry this morning. -Nurses are somewhat concerned about the possibility of aspiration, given his lethargy. 06/01: Seen by DISABILITY RATER yesterday and with compensatory swallowing strategies had less coughing with eating. HH DISABILITY RATER recommended. He is net neg 1.5L. Labs are stable. Sputum cx was contaminated with epithelial cells and gram stain shows mixed shelton. He is more awake today and continues to have a productive cough. Will attempt Shoemaker removal today. 06/02: patient seen and examined. No reported events. Continues to remain drowsy ,speaks a few words, lets his concerns known. but falls Sleep soon at bedside, plan of care reviwed with her pt bp was low this AM, his IV lasix has been stopped sputum cx is positive for staph aureus. STrated on IV vancomycin, sensitivities pending. still has cough with sputum production and has ongoing low grade temp. Pertinent ROS: unable due to drowsiness - Constitutional Vitals: Vital Signs Temp Pulse Resp BP Pulse Ox 99.0 F H 78 18 118/72 94 06/02/17 04:30 06/02/17 07:11 06/02/17 07:11 06/02/17 04:30 06/02/17 07:11 Period Temp Pulse Resp BP Sys/Ornelas Pulse Ox Last 24 Hr 98.4 F-99.4 F 42-78 16-22 90-118/62-73 92-98 Intake and Output 06/01/17 06/02/17 06/02/17 21:59 05:59 13:59 Intake Total 710 / 710 290 / 290 690 / 690 Output Total 1100 / 1100 1001 / 1001 100 / 100 Balance -390 / -390 -711 / -711 590 / 590 Weight 259 lb 6.4 oz Intake & Output: Intake & Output 06/01/17 06/02/17 06/02/17 21:59 05:59 13:59 Intake Total 710 / 710 290 / 290 690 / 690 Output Total 1100 / 1100 1001 / 1001 100 / 100 Balance -390 / -390 -711 / -711 590 / 590 Weight 259 lb 6.4 oz Intake: IV 350 / 350 50 / 50 50 / 50 Zithromax 250 mg In 250 / 250 Dextrose 5% in Water 250 ml @ 250 mls/hr IV Q24H [facility] Rx#:[id number] Zosyn 3.375 gm In 100 / 100 50 / 50 50 / 50 Dextrose 5% in Water 50 ml @ 100 mls/hr IV Q6H [facility] Rx#:[id number] Oral 360 / 360 240 / 240 640 / 640 Output: Urine Catheter Amount 1000 / 1000 Void Amount 100 / 100 1000 / 1000 100 / 100 # of times incontinent of urine Other: Meal Dinner Breakfast Percent of Meal Consumed 100% 100% Feeding Ability Assist with Tray Set Up Assist with Tray Set Up # Bowel Movements 1 Exam: Constitutional; Afebrile, cooperative, drowsy. Eyes- No icterus, , No periorbital swelling Ears- Ext ear normal, hearing normal to conversation. Neck- Midline trachea, supple Respiratory system: Air Entry equal on both sides, mei basilar crackles. right worse than left. CVS- Rate rhythm regular, S1,S2 heard, no gallop, no rub. Abdomen- Soft nontender abdomen, no organomegaly, no tenderness, no guarding or rigidity, EMERGENCY MANAGEMENT SPECIALIST- AOOx1, moving all extremities, no gross focal deficit noted. Medical - PN: Obj Da - Labs CBC & Chem 7: 06/02/17 04:00 06/02/17 04:00 Labs: Abnormal Lab Results 06/02/17 06/02/17 06/02/17 04:00 04:00 04:00 RBC 3.99 L Hgb 11.6 L Hct 35.0 L RDW 17.5 H Lymph % (Auto) 14.6 L [place] % (Auto) 12.6 H Lymph # (Auto) 1.3 L [place] # (Auto) 1.1 H PT 19.1 H INR 1.6 H BUN 42 H Creatinine 1.8 H Glucose 112 H Uric Acid 8.9 H Direct Bilirubin GGT 144 H Total Protein Albumin 3.0 L Albumin/Globulin Ratio 0.8 L 06/01/17 06/01/17 06/01/17 04:02 04:02 04:02 RBC 3.94 L Hgb 11.6 L Hct 34.8 L RDW 16.9 H Lymph % (Auto) [place] % (Auto) 13.5 H Lymph # (Auto) 1.3 L [place] # (Auto) 1.1 H PT 19.0 H INR 1.5 H BUN 36 H Creatinine 1.8 H Glucose 107 H Uric Acid 9.5 H Direct Bilirubin 0.5 H GGT 116 H Total Protein Albumin Albumin/Globulin Ratio 05/31/17 05/31/17 05/31/17 03:48 03:48 03:48 RBC 3.59 L Hgb 10.5 L Hct 31.9 L RDW 17.1 H Lymph % (Auto) [place] % (Auto) 13.2 H Lymph # (Auto) 1.2 L [place] # (Auto) 1.0 H PT 20.1 H INR 1.7 H BUN 38 H Creatinine 1.9 H Glucose 106 H Uric Acid 10.8 H Direct Bilirubin 0.4 H GGT 99 H Total Protein 5.8 L Albumin 2.8 L Albumin/Globulin Ratio 0.9 L Meds: Medications Acetaminophen (Tylenol) 650 mg PO Q6HP PRN PRN Reason: PAIN/FEVER > 101 Hydrocodone Bitart/Acetaminophen ([place] 10/325mg) 1 tab PO Q4H PRN PRN Reason: pain Last Admin: 05/31/17 15:15 Dose: 1 tab Albuterol Sulfate (Ventolin) 2.5 mg NEB Q4HRT PRN PRN Reason: Shortness Of Breath Or Wheezing Albuterol Sulfate (Ventolin) 2.5 mg NEB Q6HRT [facility] Last Admin: 06/02/17 07:10 Dose: 2.5 mg Aspirin (Aspirin) 81 mg PO DAILY [facility] Last Admin: 06/02/17 08:05 Dose: 81 mg Clopidogrel Bisulfate (Plavix) 75 mg PO DAILY [facility] Last Admin: 06/02/17 08:05 Dose: 75 mg Dextrose (Dextrose 50%) 0 ml IV UD PRN PRN Reason: Hypoglycemia Diagnostic Test (Pha) (Accu-Chek) 1 each FS ACHS [facility] Last Admin: 06/02/17 13:06 Dose: 1 each Docusate Sodium (Colace) 100 mg PO BID PRN PRN Reason: Constipation Furosemide (Lasix) 40 mg PO BIDD [facility] Gabapentin (Neurontin) 300 mg PO TID [facility] Last Admin: 06/02/17 08:04 Dose: 300 mg Glucose (Insta-Glucose) 15 gm PO PRN PRN PRN Reason: Hypoglycemia Heparin Sodium (Porcine) (Heparin) 5,000 unit SQ Q12 [facility] Last Admin: 06/02/17 08:04 Dose: 5,000 unit Piperacillin Sod/Tazobactam (Sod 3.375 gm/ Dextrose) 50 mls @ 100 mls/hr IV Q6H [facility] Last Admin: 06/02/17 11:11 Dose: 100 mls/hr Vancomycin HCl 1,500 mg/ (Sodium Chloride) 500 mls @ 333.3 mls/hr IV DAILY [facility] Last Admin: 06/02/17 13:07 Dose: 250 mls/hr Insulin Human Lispro (Humalog) 0 unit SQ ACHS [facility] PRN Reason: Protocol Last Admin: 06/02/17 13:06 Dose: 1 unit Lactobacillus Rhamnosus (Culturelle) 1 cap PO BID [facility] Lisinopril (Zestril) 5 mg PO QDAY [facility] Last Admin: 06/02/17 10:06 Dose: Not Given Magnesium Hydroxide (Milk Of Magnesia) 30 ml PO DAILYP PRN PRN Reason: Constipation Metoprolol Succinate (Toprol Xl) 100 mg PO BID [facility] Last Admin: 06/02/17 10:05 Dose: Not Given Nicotine (Nicoderm) 7 mg TOPICAL DAILY@1000 [facility] Last Admin: 06/02/17 11:13 Dose: 7 mg Ondansetron HCl (Zofran) 4 mg IV Q4HP PRN PRN Reason: Nausea And Vomiting Polyethylene Glycol (Miralax) 17 gm PO HSP PRN PRN Reason: Constipation Potassium Chloride (Kdur) 20 meq PO QAMCC [facility] Last Admin: 06/02/17 08:05 Dose: 20 meq Simvastatin (Zocor) 5 mg PO HS [facility] Last Admin: 06/01/17 21:05 Dose: 5 mg Sodium Chloride (Saline Flush) 10 ml IV Q8 [facility] Last Admin: 06/02/17 05:48 Dose: 10 ml Triamcinolone Acetonide (Kenalog Cream 0.1%) 1 dose TOPICAL BID [facility] Last Admin: 06/02/17 08:05 Dose: 1 dose Vancomycin HCl (Vancomycin Per Pharmacy) 1 order IV UD [facility] Warfarin Sodium (Coumadin Per Pharmacy) 1 order PO UD [facility] Warfarin Sodium (Coumadin) 2.5 mg PO ONCE@1400 [facility] Stop: 06/02/17 14:01 Medical - PN: A/P - Time Spent With Patient Total time spent is greater than 50% in coordination of care (as documented) at patient's floor/unit and/or counseling patient: - Narrative A/P Narrative: A/P Right lower lobe pna: Likely staph pna, on zosyn 05/31, added vanco today 06/02, monitor Acute CHF exacerbation due to pna, pt bp is low now therefore hold lasix, hold bp meds and monitor. CAD/ Cardiomyopathy/afib, h/o vtach and SCD S/p AICD, on coumadin with INR goal of 1.5? on ASA and plavix continue same. HR ok He is also on statin, which will be continued. hold bp meds. Peripheral neuropathy On gabapentin continue same. CKD stage 3, creat is 1.8 stable, monitor. Full code Hep Sq for DVT prophylaxis. Medical - PN: Qual - VTE Deep Vein Thrombosis/Pulmonary Embolism Present on Admission: No
[2017-06-02] MEDS ORDERED: WARFARIN 2.5 MG TABLET PO ONE (14:00)
[2017-06-02] MEDS: HYDROcodone/APAP 10/325MG TABLET PO PRN (14:44)
[2017-06-02] MEDS: LACTOBACILLUS 1 CAPSULE PO SCH (20:39)
[2017-06-02] MEDS: SIMVASTATIN 10 MG TABLET PO SCH (20:39)
[2017-06-03] MEDS: INSULIN LISPRO 1 UNIT/0.01 ML UNIT SQ SCH ×5 (00:14→21:29)
[2017-06-03] MEDS: PIPERACILLIN SODIUM/TAZOBACTAM 3.375 GM in DEXTROSE 5% IN WATER 50 ML IV SCH ×5 (00:36→23:45)
[2017-06-03] MEDS: METOPROLOL SUCCINATE 50 MG TAB.XL.24H PO SCH ×3 (00:36→21:31)
[2017-06-03] MEDS: 0.9 % SODIUM CHLORIDE 10 ML SYRINGE IV SCH ×4 (00:36→21:31)
[2017-06-03] MEDS: ALBUTEROL SULFATE 2.5 MG/3 ML NEBULIZER NEB SCH ×4 (02:53→21:11)
[2017-06-03 05:58] LABS: Basophils # (Auto) 0.1 K/mcL (0.0-0.3); Basophils % (Auto) 0.7 % (0.0-2.0); Eosinophils # (Auto) 0.2 K/mcL (0.0-0.7); Eosinophils % (Auto) 3.2 % (0.0-7.0); Granulocytes % (Auto) 68.5 % (38.0-78.0); Lymphocytes # (Auto) 1.4 K/mcL (1.5-4.8); Lymphocytes % (Auto) 17.9 % (15.5-49.0); Mean Cell Volume 88.7 fL (80.0-100.0); Mean Corpuscular HGB Conc 32.2 g/dL (31.0-36.0); Mean Corpuscular Hemoglobin 28.5 pg (26.0-34.0); Monocytes # (Auto) 0.8 K/mcL (0.1-0.9); Monocytes % (Auto) 9.7 % (1.0-12.0); Platelet Count 255 K/mcL (140-440); RBC 3.99 M/mcL (4.50-5.90); Red Cell Distribution Width 17.6 % (11.5-14.5)
[2017-06-03 06:11] LABS: ALT/SGPT 21 U/l (0-40); Albumin 3.1 gm/dL (3.2-5.2); Albumin/Globulin Ratio 0.9 (1.0-2.3); Alkaline Phosphatase 80 U/L (39-117); Bilirubin,Direct < 0.2 mg/dL (0.0-0.3); Blood Urea Nitrogen 43 mg/dl (8-23); Gamma Glutamyl Transpeptidase 143 U/L (8-61); Magnesium 2.6 mg/dL (1.6-2.5); Uric Acid 7.7 mg/dL (2.5-8.0)
[2017-06-03] MEDS: GABAPENTIN 100 MG CAPSULE PO SCH ×3 (08:45→21:28)
[2017-06-03] MEDS: NICOTINE 7 MG PATCH TOPICAL SCH (08:45)
[2017-06-03] MEDS: CLOPIDOGREL 75 MG TABLET PO SCH (08:45)
[2017-06-03] MEDS: TRIAMCINOLONE CREAM 0.1% 15G 1 DOSE TUBE TOPICAL SCH ×2 (08:45→21:28)
[2017-06-03] MEDS: LACTOBACILLUS 1 CAPSULE PO SCH ×2 (08:46→21:28)
[2017-06-03] MEDS: POTASSIUM CHLORIDE 20 MEQ TABLET PO SCH (08:46)
[2017-06-03] MEDS: HEPARIN 5,000 UNIT/ML VIAL SQ SCH ×2 (08:46→21:30)
[2017-06-03] MEDS: ASPIRIN 81 MG TAB.CHEW PO SCH (08:46)
[2017-06-03] MEDS: LISINOPRIL 10 MG TABLET PO SCH (08:47)
[2017-06-03] MEDS ORDERED: FUROSEMIDE 40 MG TABLET PO SCH (09:00)
[2017-06-03] MEDS: HYDROcodone/APAP 10/325MG TABLET PO PRN (11:05)
--- NOTE | 2017-06-03 13:22 | Internal Med Progress Note ---
Medical - PN: Subj Patient information: Note initiated : 06/03/17 at 1:20 pm Service Date, if different from initiated Date: [] Patient: Vinh Meza 77 y/o M admitted on 05/30/17 for Fever, SOB/Pneumonia. Chief Complaint: [] Interval history: May 30, 2017: History of present illness: Mr. Meza is a 77 year old man with a significant cardiac history, including [place] with cardiac arrest and AICD placement in 1994, status post CABG, congestive heart failure, atrial fibrillation whose reports that he has had a mild cough for about 2 months now. He notes some time over that. He has felt a little short of breath with activities, but nothing too impressive. About 4 days ago, he did develop some increasing shortness of breath and increased chest congestion. His said he ran a temperature of 102.6 for a couple of days. He is bringing up phlegm only occasionally, which is brownish in color and may have some blood streaks. He has noticed increased dyspnea with exertion , but is not sure if he also has orthopnea. He also reports some mild abdominal discomfort, which is fairly diffuse, over the same.. He says he normally has 1-2 bowel movements a day, and last bowel movement was yesterday. He denies significant chest pain or palpitations. He last saw his liner worker probably in December of this year, in [place], Dr. Adhikari at [facility]. He thinks his last stress test was a few years ago, and believes that looked fine. ER evaluation showed a chest x-ray consistent with congestive heart failure as well as a fairly dense right lower lobe infiltrate. He does drop his O2 saturations into the 80s with even minimal exertion. He is now admitted for further workup and treatment. He otherwise denies headaches or dizziness, new eye or ear symptoms, sore throat , chest pain or palpitations, nausea or vomiting, diarrhea or constipation. 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 His chart says he has type 2 diabetes, but he and his are both fairly insistent that he has never had diabetes. May 31: Today, the patient continues to have significantly productive cough. He is bringing up greenish phlegm. Nurses note he continues to be fairly drowsy, and often falls asleep mid sentence. He is maintaining O2 saturations. He did diurese some overnight. He does wake up when he is spoken to, but is quite drifty. He denies fever or chills, chest pain or palpitations. He thinks his shortness of breath is better , and his thinks he sounds better than before. He denies abdominal pain, nausea or vomiting, diarrhea or constipation or dysuria. He did say that he was hungry this morning. -Nurses are somewhat concerned about the possibility of aspiration, given his lethargy. 06/01: Seen by SECURITY AND COMPLIANCE PROJECT MANAGER yesterday and with compensatory swallowing strategies had less coughing with eating. HH SECURITY AND COMPLIANCE PROJECT MANAGER recommended. He is net neg 1.5L. Labs are stable. Sputum cx was contaminated with epithelial cells and gram stain shows mixed shelton. He is more awake today and continues to have a productive cough. Will attempt Shoemaker removal today. 06/02: patient seen and examined. No reported events. Continues to remain drowsy ,speaks a few words, lets his concerns known. but falls Sleep soon at bedside, plan of care reviwed with her pt bp was low this AM, his IV lasix has been stopped sputum cx is positive for staph aureus. STrated on IV vancomycin, sensitivities pending. still has cough with sputum production and has ongoing low grade temp. 06/03: Pt seen examined, no acute overnight events, some sob this AM when lying flat, sputum culture is MSSA, vanco stopped Patient on zosyn for aspiration pna, continue same, switch to augmentin at discharge clinically seems to be improving has significant dysphagia and ST is working with pt, educated on need to be compliant with reccommendations. bp soft this AM, will resume metoprolol, hold lasix. plan of care discussed with patient and his . Pertinent ROS: Denies headache, dizziness Denies chest pain, palpitations Denies cough or shortness of breath (improving cough and sob) Denies abdominal pain, nausea or vomiting. - Constitutional Vitals: Vital Signs Temp Pulse Resp BP Pulse Ox 98.2 F 84 20 120/61 96 06/03/17 12:07 06/03/17 13:17 06/03/17 13:17 06/03/17 12:07 06/03/17 12:41 Period Temp Pulse Resp BP Sys/Ornelas Pulse Ox Last 24 Hr 98.2 F-99.0 F 70-85 16-22 89-141/51-97 92-98 Intake and Output 06/02/17 06/03/17 06/03/17 21:59 05:59 13:59 Intake Total 50 / 50 350 / 350 290 / 290 Output Total 200 / 200 350 / 350 175 / 175 Balance -150 / -150 0 / 0 115 / 115 Weight 259 lb 6.4 oz 259 lb 6.4 oz Intake & Output: Intake & Output 06/02/17 06/03/17 06/03/17 21:59 05:59 13:59 Intake Total 50 / 50 350 / 350 290 / 290 Output Total 200 / 200 350 / 350 175 / 175 Balance -150 / -150 0 / 0 115 / 115 Weight 259 lb 6.4 oz 259 lb 6.4 oz Intake: IV 50 / 50 50 / 50 50 / 50 Zosyn 3.375 gm In 50 / 50 50 / 50 50 / 50 Dextrose 5% in Water 50 ml @ 100 mls/hr IV Q6H [facility] Rx#:[id number] Oral 300 / 300 240 / 240 Output: Void Amount 200 / 200 350 / 350 175 / 175 Other: Meal Breakfast Percent of Meal Consumed 75% Feeding Ability Assist with Tray Set Up # Bowel Movements 1 Exam: Constitutional; Afebrile, cooperative, , not in distress. somewhat drowsy. Eyes- No icterus, , No periorbital swelling Ears- Ext ear normal, hearing ok to hard to conversation. Neck- Midline trachea, supple Respiratory system: Air Entry equal on both sides, mei basilar crackles, mild CVS- Rate rhythm iregular, S1,S2 heard, no gallop, no rub. Abdomen- Soft nontender abdomen, no organomegaly, no tenderness, no guarding or rigidity, DUST COLLECTOR- AOOx2, moving all extremities, no gross focal deficit noted. Medical - PN: Obj Da - Labs CBC & Chem 7: 06/03/17 04:06 06/03/17 04:06 Labs: Abnormal Lab Results 06/03/17 06/03/17 06/03/17 04:06 04:06 04:06 RBC 3.99 L Hgb 11.4 L Hct 35.4 L RDW 17.6 H Lymph % (Auto) [place] % (Auto) Lymph # (Auto) 1.4 L [place] # (Auto) PT 19.2 H INR 1.6 H Sodium 146 H BUN 43 H Creatinine 1.6 H Glucose 112 H Uric Acid Magnesium 2.6 H Direct Bilirubin GGT 143 H Albumin 3.1 L Albumin/Globulin Ratio 0.9 L 06/02/17 06/02/17 06/02/17 04:00 04:00 04:00 RBC 3.99 L Hgb 11.6 L Hct 35.0 L RDW 17.5 H Lymph % (Auto) 14.6 L [place] % (Auto) 12.6 H Lymph # (Auto) 1.3 L [place] # (Auto) 1.1 H PT 19.1 H INR 1.6 H Sodium BUN 42 H Creatinine 1.8 H Glucose 112 H Uric Acid 8.9 H Magnesium Direct Bilirubin GGT 144 H Albumin 3.0 L Albumin/Globulin Ratio 0.8 L 06/01/17 06/01/17 06/01/17 04:02 04:02 04:02 RBC 3.94 L Hgb 11.6 L Hct 34.8 L RDW 16.9 H Lymph % (Auto) [place] % (Auto) 13.5 H Lymph # (Auto) 1.3 L [place] # (Auto) 1.1 H PT 19.0 H INR 1.5 H Sodium BUN 36 H Creatinine 1.8 H Glucose 107 H Uric Acid 9.5 H Magnesium Direct Bilirubin 0.5 H GGT 116 H Albumin Albumin/Globulin Ratio Meds: Medications Acetaminophen (Tylenol) 650 mg PO Q6HP PRN PRN Reason: PAIN/FEVER > 101 Last Admin: 06/02/17 14:52 Dose: 650 mg Hydrocodone Bitart/Acetaminophen ([place] 10/325mg) 1 tab PO Q4H PRN PRN Reason: pain Last Admin: 06/03/17 11:05 Dose: 1 tab Albuterol Sulfate (Ventolin) 2.5 mg NEB Q4HRT PRN PRN Reason: Shortness Of Breath Or Wheezing Albuterol Sulfate (Ventolin) 2.5 mg NEB Q6HRT [facility] Last Admin: 06/03/17 13:17 Dose: 2.5 mg Aspirin (Aspirin) 81 mg PO DAILY [facility] Last Admin: 06/03/17 08:46 Dose: 81 mg Clopidogrel Bisulfate (Plavix) 75 mg PO DAILY [facility] Last Admin: 06/03/17 08:45 Dose: 75 mg Dextrose (Dextrose 50%) 0 ml IV UD PRN PRN Reason: Hypoglycemia Diagnostic Test (Pha) (Accu-Chek) 1 each FS ACHS [facility] Last Admin: 06/03/17 09:14 Dose: 1 each Docusate Sodium (Colace) 100 mg PO BID PRN PRN Reason: Constipation Gabapentin (Neurontin) 300 mg PO TID [facility] Last Admin: 06/03/17 08:45 Dose: 300 mg Glucose (Insta-Glucose) 15 gm PO PRN PRN PRN Reason: Hypoglycemia Heparin Sodium (Porcine) (Heparin) 5,000 unit SQ Q12 [facility] Last Admin: 06/03/17 08:46 Dose: 5,000 unit Piperacillin Sod/Tazobactam (Sod 3.375 gm/ Dextrose) 50 mls @ 100 mls/hr IV Q6H [facility] Last Admin: 06/03/17 13:14 Dose: 100 mls/hr Insulin Human Lispro (Humalog) 0 unit SQ [facility] PRN Reason: Protocol Last Admin: 06/03/17 09:14 Dose: Not Given Lactobacillus Rhamnosus (Culturelle) 1 cap PO BID [facility] Last Admin: 06/03/17 08:46 Dose: 1 cap Lisinopril (Zestril) 5 mg PO QDAY [facility] Last Admin: 06/03/17 08:47 Dose: Not Given Magnesium Hydroxide (Milk Of Magnesia) 30 ml PO DAILYP PRN PRN Reason: Constipation Metoprolol Succinate (Toprol Xl) 100 mg PO BID [facility] Last Admin: 06/03/17 08:46 Dose: 100 mg Nicotine (Nicoderm) 7 mg TOPICAL DAILY@1000 [facility] Last Admin: 06/03/17 08:45 Dose: 7 mg Ondansetron HCl (Zofran) 4 mg IV Q4HP PRN PRN Reason: Nausea And Vomiting Polyethylene Glycol (Miralax) 17 gm PO HSP PRN PRN Reason: Constipation Potassium Chloride (Kdur) 20 meq PO QAMCC [facility] Last Admin: 06/03/17 08:46 Dose: 20 meq Simvastatin (Zocor) 5 mg PO HS [facility] Last Admin: 06/02/17 20:39 Dose: 5 mg Sodium Chloride (Saline Flush) 10 ml IV Q8 [facility] Last Admin: 06/03/17 13:15 Dose: 10 ml Triamcinolone Acetonide (Kenalog Cream 0.1%) 1 dose TOPICAL BID INDRA Last Admin: 06/03/17 08:45 Dose: 1 dose Vancomycin HCl (Vancomycin Per Pharmacy) 1 order IV UD INDRA Warfarin Sodium (Coumadin Per Pharmacy) 1 order PO UD INDRA Warfarin Sodium (Coumadin) 2.5 mg PO ONCE@1400 ONE Stop: 06/03/17 14:01 Last Admin: 06/03/17 13:14 Dose: 2.5 mg Medical - PN: A/P - Time Spent With Patient Total time spent is greater than 50% in coordination of care (as documented) at patient's floor/unit and/or counseling patient: - Narrative A/P Narrative: A/P Right lower lobe pna: Likely staph pna, on zosyn 05/31, off vanco, sputum cx is MSSA< will switch to augmentin at discharge. Acute CHF exacerbation due to pna, pt bp is soft, resume metoplrl, hold erick and lasix and monitor. -4500ml since admission. CAD/ Cardiomyopathy/afib, h/o vtach and SCD S/p AICD, on coumadin with INR goal of 1.5? on ASA and plavix continue same. HR ok He is also on statin, which will be continued Peripheral neuropathy On gabapentin continue same. CKD stage 3, creat is 1.6 stable, monitor. Full code Hep Sq for DVT prophylaxis. Medical - PN: Qual - VTE Deep Vein Thrombosis/Pulmonary Embolism Present on Admission: No
[2017-06-03] MEDS ORDERED: WARFARIN 2.5 MG TABLET PO ONE (14:00)
[2017-06-03] MEDS: SIMVASTATIN 10 MG TABLET PO SCH (21:30)
[2017-06-04] MEDS: ALBUTEROL SULFATE 2.5 MG/3 ML NEBULIZER NEB SCH ×4 (05:02→19:35)
[2017-06-04] MEDS: 0.9 % SODIUM CHLORIDE 10 ML SYRINGE IV SCH ×3 (05:53→22:08)
[2017-06-04] MEDS: PIPERACILLIN SODIUM/TAZOBACTAM 3.375 GM in DEXTROSE 5% IN WATER 50 ML IV SCH ×4 (05:53→23:59)
[2017-06-04 09:07] LABS: Basophils # (Auto) 0 K/mcL (0.0-0.3); Basophils % (Auto) 0.3 % (0.0-2.0); Eosinophils # (Auto) 0.3 K/mcL (0.0-0.7); Eosinophils % (Auto) 3.9 % (0.0-7.0); Granulocytes % (Auto) 71.1 % (38.0-78.0); Lymphocytes # (Auto) 1.7 K/mcL (1.5-4.8); Lymphocytes % (Auto) 19.5 % (15.5-49.0); Mean Cell Volume 88.7 fL (80.0-100.0); Mean Corpuscular HGB Conc 32.1 g/dL (31.0-36.0); Mean Corpuscular Hemoglobin 28.5 pg (26.0-34.0); Monocytes # (Auto) 0.4 K/mcL (0.1-0.9); Monocytes % (Auto) 5.2 % (1.0-12.0); Platelet Count 282 K/mcL (140-440); Red Cell Distribution Width 17.6 % (11.5-14.5)
[2017-06-04] MEDS: TRIAMCINOLONE CREAM 0.1% 15G 1 DOSE TUBE TOPICAL SCH ×2 (09:17→22:08)
[2017-06-04] MEDS: INSULIN LISPRO 1 UNIT/0.01 ML UNIT SQ SCH ×4 (09:17→21:58)
[2017-06-04] MEDS: LACTOBACILLUS 1 CAPSULE PO SCH ×2 (09:18→22:07)
[2017-06-04 09:33] LABS: ALT/SGPT 19 U/l (0-40); Albumin 3.2 gm/dL (3.2-5.2); Albumin/Globulin Ratio 0.9 (1.0-2.3); Alkaline Phosphatase 82 U/L (39-117); Bilirubin,Direct < 0.2 mg/dL (0.0-0.3); Blood Urea Nitrogen 33 mg/dl (8-23); Gamma Glutamyl Transpeptidase 160 U/L (8-61); Magnesium 2.6 mg/dL (1.6-2.5); Uric Acid 6.1 mg/dL (2.5-8.0)
[2017-06-04] MEDS: GABAPENTIN 100 MG CAPSULE PO SCH ×2 (10:02→16:17)
[2017-06-04] MEDS: LISINOPRIL 10 MG TABLET PO SCH (10:02)
[2017-06-04] MEDS: POTASSIUM CHLORIDE 20 MEQ TABLET PO SCH (10:02)
[2017-06-04] MEDS: HEPARIN 5,000 UNIT/ML VIAL SQ SCH ×2 (10:03→21:58)
[2017-06-04] MEDS: CLOPIDOGREL 75 MG TABLET PO SCH (10:03)
[2017-06-04] MEDS: ASPIRIN 81 MG TAB.CHEW PO SCH (10:03)
[2017-06-04] MEDS: METOPROLOL SUCCINATE 50 MG TAB.XL.24H PO SCH ×2 (10:03→22:02)
[2017-06-04] MEDS: NICOTINE 7 MG PATCH TOPICAL SCH (12:22)
--- NOTE | 2017-06-04 12:28 | Internal Med Progress Note ---
Medical - PN: Subj Patient information: Note initiated : 06/04/17 at 12:25 pm Service Date, if different from initiated Date: [] Patient: Vinh Meza 77 y/o M admitted on 05/30/17 for Fever, SOB/Pneumonia. Chief Complaint: [] Interval history: May 30, 2017: History of present illness: Mr. Meza is a 77 year old man with a significant cardiac history, including [place] with cardiac arrest and AICD placement in 1994, status post CABG, congestive heart failure, atrial fibrillation whose reports that he has had a mild cough for about 2 months now. He notes some time over that. He has felt a little short of breath with activities, but nothing too impressive. About 4 days ago, he did develop some increasing shortness of breath and increased chest congestion. His said he ran a temperature of 102.6 for a couple of days. He is bringing up phlegm only occasionally, which is brownish in color and may have some blood streaks. He has noticed increased dyspnea with exertion , but is not sure if he also has orthopnea. He also reports some mild abdominal discomfort, which is fairly diffuse, over the same.. He says he normally has 1-2 bowel movements a day, and last bowel movement was yesterday. He denies significant chest pain or palpitations. He last saw his pattern changer and repairer probably in December of this year, in [place], Dr. Adhikari at [facility]. He thinks his last stress test was a few years ago, and believes that looked fine. ER evaluation showed a chest x-ray consistent with congestive heart failure as well as a fairly dense right lower lobe infiltrate. He does drop his O2 saturations into the 80s with even minimal exertion. He is now admitted for further workup and treatment. He otherwise denies headaches or dizziness, new eye or ear symptoms, sore throat , chest pain or palpitations, nausea or vomiting, diarrhea or constipation. 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 His chart says he has type 2 diabetes, but he and his are both fairly insistent that he has never had diabetes. May 31: Today, the patient continues to have significantly productive cough. He is bringing up greenish phlegm. Nurses note he continues to be fairly drowsy, and often falls asleep mid sentence. He is maintaining O2 saturations. He did diurese some overnight. He does wake up when he is spoken to, but is quite drifty. He denies fever or chills, chest pain or palpitations. He thinks his shortness of breath is better , and his thinks he sounds better than before. He denies abdominal pain, nausea or vomiting, diarrhea or constipation or dysuria. He did say that he was hungry this morning. -Nurses are somewhat concerned about the possibility of aspiration, given his lethargy. 06/01: Seen by MEAT MOLDER yesterday and with compensatory swallowing strategies had less coughing with eating. HH MEAT MOLDER recommended. He is net neg 1.5L. Labs are stable. Sputum cx was contaminated with epithelial cells and gram stain shows mixed shelton. He is more awake today and continues to have a productive cough. Will attempt Shoemaker removal today. 06/02: patient seen and examined. No reported events. Continues to remain drowsy ,speaks a few words, lets his concerns known. but falls Sleep soon at bedside, plan of care reviwed with her pt bp was low this AM, his IV lasix has been stopped sputum cx is positive for staph aureus. STrated on IV vancomycin, sensitivities pending. still has cough with sputum production and has ongoing low grade temp. 06/03: Pt seen examined, no acute overnight events, some sob this AM when lying flat, sputum culture is MSSA, vanco stopped Patient on zosyn for aspiration pna, continue same, switch to augmentin at discharge clinically seems to be improving has significant dysphagia and ST is working with pt, educated on need to be compliant with reccommendations. bp soft this AM, will resume metoprolol, hold lasix. plan of care discussed with patient and his . 06/04: Pt seen examined, at bedside, no acute overnight events, pt this AM feeling better, more alert and awake, bp stable, still in AFib. He still has cough and shortness of breath, but clinically is improving I shared my concerns with im being considered for discharge home given his poor functional status, but and patient declined any other alternative. Stable to be transferred to med surg today Hold lasix for now, resume Chuy. Pertinent ROS: Denies headache, dizziness Denies chest pain, palpitations Denies cough or shortness of breath (improving) Denies abdominal pain, nausea or vomiting. - Constitutional Vitals: Vital Signs Temp Pulse Resp BP Pulse Ox 97.7 F 82 20 115/69 95 06/04/17 12:00 06/04/17 07:35 06/04/17 12:00 06/04/17 12:00 06/04/17 12:00 Period Temp Pulse Resp BP Sys/Ornelas Pulse Ox Last 24 Hr 97.7 F-98.6 F 75-85 16-20 110-141/53-104 92-96 Intake and Output 06/03/17 06/04/17 06/04/17 21:59 05:59 13:59 Intake Total 1390 / 1390 50 / 50 50 / 50 Output Total 875 / 875 150 / 150 225 / 225 Balance 515 / 515 -100 / -100 -175 / -175 Weight 251 lb 8 oz 251 lb 8 oz Patient Weight 06/05/17 05:59 Weight 251 lb 8 oz Intake & Output: Intake & Output 06/03/17 06/04/17 06/04/17 21:59 05:59 13:59 Intake Total 1390 / 1390 50 / 50 50 / 50 Output Total 875 / 875 150 / 150 225 / 225 Balance 515 / 515 -100 / -100 -175 / -175 Weight 251 lb 8 oz 251 lb 8 oz Intake: IV 50 / 50 50 / 50 50 / 50 Zosyn 3.375 gm In 50 / 50 50 / 50 50 / 50 Dextrose 5% in Water 50 ml @ 100 mls/hr IV Q6H [facility] Rx#:[id number] Oral 1340 / 1340 Output: Void Amount 875 / 875 150 / 150 225 / 225 Other: # Voids 1 # Bowel Movements 1 1 Exam: Constitutional; Afebrile, cooperative, alert, not in distress. Eyes- No icterus, , No periorbital swelling Ears- Ext ear normal, hearing ok to conversation. Neck- Midline trachea, supple Respiratory system: Air Entry equal on both sides, bilbasilar crackles, rt> left. CVS- Rate rhythm irregular, S1,S2 heard, no gallop, no rub. Abdomen- Soft nontender abdomen, no organomegaly, no tenderness, no guarding or rigidity, STOCK SUPERVISOR- AOOx3, moving all extremities, no gross focal deficit noted. Medical - PN: Obj Da - Labs CBC & Chem 7: 06/04/17 08:30 06/04/17 08:30 Labs: Abnormal Lab Results 06/04/17 06/04/17 06/04/17 08:30 08:30 04:03 RBC 4.10 L Hgb 11.7 L Hct 36.4 L RDW 17.6 H Lymph % (Auto) [place] % (Auto) Lymph # (Auto) [place] # (Auto) PT 18.9 H INR 1.5 H Sodium BUN 33 H Creatinine 1.3 H Glucose 139 H Uric Acid Magnesium 2.6 H GGT 160 H Albumin Albumin/Globulin Ratio 0.9 L 06/03/17 06/03/17 06/03/17 04:06 04:06 04:06 RBC 3.99 L Hgb 11.4 L Hct 35.4 L RDW 17.6 H Lymph % (Auto) [place] % (Auto) Lymph # (Auto) 1.4 L [place] # (Auto) PT 19.2 H INR 1.6 H Sodium 146 H BUN 43 H Creatinine 1.6 H Glucose 112 H Uric Acid Magnesium 2.6 H GGT 143 H Albumin 3.1 L Albumin/Globulin Ratio 0.9 L 06/02/17 06/02/17 06/02/17 04:00 04:00 04:00 RBC 3.99 L Hgb 11.6 L Hct 35.0 L RDW 17.5 H Lymph % (Auto) 14.6 L [place] % (Auto) 12.6 H Lymph # (Auto) 1.3 L [place] # (Auto) 1.1 H PT 19.1 H INR 1.6 H Sodium BUN 42 H Creatinine 1.8 H Glucose 112 H Uric Acid 8.9 H Magnesium GGT 144 H Albumin 3.0 L Albumin/Globulin Ratio 0.8 L Meds: Medications Acetaminophen (Tylenol) 650 mg PO Q6HP PRN PRN Reason: PAIN/FEVER > 101 Last Admin: 06/02/17 14:52 Dose: 650 mg Hydrocodone Bitart/Acetaminophen ([place] 10/325mg) 1 tab PO Q4H PRN PRN Reason: pain Last Admin: 06/03/17 11:05 Dose: 1 tab Albuterol Sulfate (Ventolin) 2.5 mg NEB Q4HRT PRN PRN Reason: Shortness Of Breath Or Wheezing Albuterol Sulfate (Ventolin) 2.5 mg NEB Q6HRT [facility] Last Admin: 06/04/17 07:28 Dose: 2.5 mg Aspirin (Aspirin) 81 mg PO DAILY [facility] Last Admin: 06/04/17 10:03 Dose: 81 mg Clopidogrel Bisulfate (Plavix) 75 mg PO DAILY [facility] Last Admin: 06/04/17 10:03 Dose: 75 mg Dextrose (Dextrose 50%) 0 ml IV UD PRN PRN Reason: Hypoglycemia Diagnostic Test (Pha) (Accu-Chek) 1 each FS ACHS [facility] Last Admin: 06/04/17 12:13 Dose: 1 each Docusate Sodium (Colace) 100 mg PO BID PRN PRN Reason: Constipation Gabapentin (Neurontin) 300 mg PO TID [facility] Last Admin: 06/04/17 10:02 Dose: 300 mg Glucose (Insta-Glucose) 15 gm PO PRN PRN PRN Reason: Hypoglycemia Heparin Sodium (Porcine) (Heparin) 5,000 unit SQ Q12 [facility] Last Admin: 06/04/17 10:03 Dose: 5,000 unit Piperacillin Sod/Tazobactam (Sod 3.375 gm/ Dextrose) 50 mls @ 100 mls/hr IV Q6H [facility] Last Admin: 06/04/17 12:13 Dose: 100 mls/hr Insulin Human Lispro (Humalog) 0 unit SQ [facility] PRN Reason: Protocol Last Admin: 06/04/17 12:13 Dose: Not Given Lactobacillus Rhamnosus (Culturelle) 1 cap PO BID [facility] Last Admin: 06/04/17 09:18 Dose: 1 cap Lisinopril (Zestril) 5 mg PO QDAY [facility] Last Admin: 06/04/17 10:02 Dose: 5 mg Magnesium Hydroxide (Milk Of Magnesia) 30 ml PO DAILYP PRN PRN Reason: Constipation Metoprolol Succinate (Toprol Xl) 100 mg PO BID [facility] Last Admin: 06/04/17 10:03 Dose: 100 mg Nicotine (Nicoderm) 7 mg TOPICAL DAILY@1000 [facility] Last Admin: 06/04/17 12:22 Dose: 7 mg Ondansetron HCl (Zofran) 4 mg IV Q4HP PRN PRN Reason: Nausea And Vomiting Polyethylene Glycol (Miralax) 17 gm PO HSP PRN PRN Reason: Constipation Potassium Chloride (Kdur) 20 meq PO QAMCC [facility] Last Admin: 06/04/17 10:02 Dose: 20 meq Simvastatin (Zocor) 5 mg PO HS [facility] Last Admin: 06/03/17 21:30 Dose: 5 mg Sodium Chloride (Saline Flush) 10 ml IV Q8 [facility] Last Admin: 06/04/17 05:53 Dose: 10 ml Triamcinolone Acetonide (Kenalog Cream 0.1%) 1 dose TOPICAL BID [facility] Last Admin: 06/04/17 09:17 Dose: 1 dose Vancomycin HCl (Vancomycin Per Pharmacy) 1 order IV UD INDRA Warfarin Sodium (Coumadin Per Pharmacy) 1 order PO UD INDRA Warfarin Sodium (Coumadin) 5 mg PO ONCE@1400 ONE Stop: 06/04/17 14:01 Medical - PN: A/P - Time Spent With Patient Total time spent is greater than 50% in coordination of care (as documented) at patient's floor/unit and/or counseling patient: - Narrative A/P Narrative: A/P Right lower lobe pna: Likely staph pna, on zosyn 05/31, off vanco, sputum cx is MSSA< will switch to augmentin at discharge. clinically improving. Acute CHF exacerbation due to pna, pt bp is soft, resume Metoprol, resume CHUY today, Keep holding lasix for now, will resume if BP improves CAD/ Cardiomyopathy/afib, h/o vtach and SCD S/p AICD, on coumadin with INR goal of 1.5? on ASA and plavix continue same. HR ok He is also on statin, which will be continued Peripheral neuropathy On gabapentin continue same. CKD stage 3, creat is 1.3 better than before, and improving monitor, expect slight worsening once CHUY and diuretics are resumed. Full code Hep Sq for DVT prophylaxis. Medical - PN: Qual - VTE Deep Vein Thrombosis/Pulmonary Embolism Present on Admission: No
[2017-06-04] MEDS ORDERED: WARFARIN 5 MG TABLET PO ONE (14:00)
[2017-06-04] MEDS ORDERED: DEXTROSE 31 GM ORAL.SUSP PO PRN ×2 (17:33→17:59)
[2017-06-04] MEDS ORDERED: DOCUSATE SODIUM 100 MG CAPSULE PO PRN ×2 (17:33→17:59)
[2017-06-04] MEDS ORDERED: ACETAMINOPHEN 325 MG TABLET PO PRN ×2 (17:33→17:59)
[2017-06-04] MEDS ORDERED: POLYETHYLENE GLYCOL 3350 17 GM PACKET PO PRN ×2 (17:33→21:00)
[2017-06-04] MEDS ORDERED: HYDROcodone/APAP 10/325MG TABLET PO PRN (17:33)
[2017-06-04] MEDS ORDERED: MAGNESIUM HYDROXIDE 30 ML ORAL.SUSP PO PRN ×2 (17:33→17:59)
[2017-06-04] MEDS ORDERED: ONDANSETRON 4 MG/2 ML VIAL IV PRN ×2 (17:33→17:59)
[2017-06-04] MEDS ORDERED: DEXTROSE 50% 50 ML VIAL IV PRN ×2 (17:33→17:59)
[2017-06-04] MEDS ORDERED: ALBUTEROL SULFATE 2.5 MG/3 ML NEBULIZER NEB PRN ×2 (17:33→17:59)
[2017-06-04] MEDS ORDERED: ALBUTEROL SULFATE 2.5 MG/3 ML NEBULIZER NEB SCH (19:00)
[2017-06-04] MEDS ORDERED: INSULIN LISPRO 1 UNIT/0.01 ML UNIT SQ SCH (21:00)
[2017-06-04] MEDS ORDERED: HEPARIN 5,000 UNIT/ML VIAL SQ SCH (21:00)
[2017-06-04] MEDS ORDERED: GABAPENTIN 100 MG CAPSULE PO SCH (21:00)
[2017-06-04] MEDS ORDERED: SIMVASTATIN 10 MG TABLET PO SCH (21:00)
[2017-06-04] MEDS ORDERED: TRIAMCINOLONE CREAM 0.1% 15G 1 DOSE TUBE TOPICAL SCH (21:00)
[2017-06-04] MEDS ORDERED: LACTOBACILLUS 1 CAPSULE PO SCH (21:00)
[2017-06-04] MEDS ORDERED: METOPROLOL SUCCINATE 50 MG TAB.XL.24H PO SCH (21:00)
[2017-06-04] MEDS ORDERED: PIPERACILLIN SODIUM/TAZOBACTAM 3.375 GM in DEXTROSE 5% IN WATER 50 ML IV SCH (21:00)
[2017-06-04] MEDS: GABAPENTIN 300 MG CAPSULE PO SCH (21:58)
[2017-06-04] MEDS: SIMVASTATIN 10 MG TABLET PO SCH (21:59)
[2017-06-04] MEDS ORDERED: 0.9 % SODIUM CHLORIDE 10 ML SYRINGE IV SCH (22:00)
[2017-06-05] MEDS: ALBUTEROL SULFATE 2.5 MG/3 ML NEBULIZER NEB SCH ×5 (00:04→23:41)
[2017-06-05] MEDS: HYDROcodone/APAP 10/325MG TABLET PO PRN ×3 (00:53→20:19)
[2017-06-05] MEDS: PIPERACILLIN SODIUM/TAZOBACTAM 3.375 GM in DEXTROSE 5% IN WATER 50 ML IV SCH ×4 (05:25→23:32)
[2017-06-05] MEDS: 0.9 % SODIUM CHLORIDE 10 ML SYRINGE IV SCH ×3 (05:26→20:21)
[2017-06-05 05:50] LABS: Basophils # (Auto) 0.1 K/mcL (0.0-0.3); Basophils % (Auto) 0.6 % (0.0-2.0); Eosinophils # (Auto) 0.4 K/mcL (0.0-0.7); Eosinophils % (Auto) 4.2 % (0.0-7.0); Granulocytes % (Auto) 69.9 % (38.0-78.0); Lymphocytes # (Auto) 1.7 K/mcL (1.5-4.8); Mean Cell Volume 88.6 fL (80.0-100.0); Mean Corpuscular HGB Conc 31.9 g/dL (31.0-36.0); Mean Corpuscular Hemoglobin 28.3 pg (26.0-34.0); Monocytes # (Auto) 0.4 K/mcL (0.1-0.9); Monocytes % (Auto) 5.3 % (1.0-12.0); Platelet Count 273 K/mcL (140-440); RBC 3.91 M/mcL (4.50-5.90); Red Cell Distribution Width 17.5 % (11.5-14.5)
[2017-06-05 06:14] LABS: ALT/SGPT 14 U/l (0-40); Albumin 3.2 gm/dL (3.2-5.2); Albumin/Globulin Ratio 1.1 (1.0-2.3); Alkaline Phosphatase 75 U/L (39-117); Bilirubin,Direct < 0.2 mg/dL (0.0-0.3); Blood Urea Nitrogen 34 mg/dl (8-23); Gamma Glutamyl Transpeptidase 159 U/L (8-61); Magnesium 2.5 mg/dL (1.6-2.5); Uric Acid 5.3 mg/dL (2.5-8.0)
[2017-06-05] MEDS ORDERED: POTASSIUM CHLORIDE 20 MEQ TABLET PO SCH (08:00)
[2017-06-05] MEDS: INSULIN LISPRO 1 UNIT/0.01 ML UNIT SQ SCH ×4 (08:43→20:20)
[2017-06-05] MEDS: POTASSIUM CHLORIDE 20 MEQ TABLET PO SCH (08:47)
[2017-06-05] MEDS: LISINOPRIL 10 MG TABLET PO SCH (08:49)
[2017-06-05] MEDS: CLOPIDOGREL 75 MG TABLET PO SCH (08:49)
[2017-06-05] MEDS: METOPROLOL SUCCINATE 50 MG TAB.XL.24H PO SCH ×2 (08:49→20:17)
[2017-06-05] MEDS: ASPIRIN 81 MG TAB.CHEW PO SCH (08:49)
[2017-06-05] MEDS: GABAPENTIN 300 MG CAPSULE PO SCH ×3 (08:49→20:17)
[2017-06-05] MEDS: HEPARIN 5,000 UNIT/ML VIAL SQ SCH ×2 (08:50→20:19)
[2017-06-05] MEDS: LACTOBACILLUS 1 CAPSULE PO SCH ×2 (08:50→20:17)
[2017-06-05] MEDS: TRIAMCINOLONE CREAM 0.1% 15G 1 DOSE TUBE TOPICAL SCH ×3 (08:50→20:17)
[2017-06-05] MEDS ORDERED: CLOPIDOGREL 75 MG TABLET PO SCH (09:00)
[2017-06-05] MEDS ORDERED: LISINOPRIL 10 MG TABLET PO SCH (09:00)
[2017-06-05] MEDS ORDERED: ASPIRIN 81 MG TAB.CHEW PO SCH (09:00)
[2017-06-05] MEDS: FUROSEMIDE 40 MG TABLET PO SCH ×2 (09:03→16:47)
[2017-06-05] MEDS ORDERED: NICOTINE 7 MG PATCH TOPICAL SCH (10:00)
[2017-06-05] MEDS: NICOTINE 7 MG PATCH TOPICAL SCH (10:35)
--- NOTE | 2017-06-05 12:36 | Internal Med Progress Note ---
Medical - PN: Subj Patient information: Note initiated : 06/05/17 at 12:34 pm Service Date, if different from initiated Date: [] Patient: Vinh Meza 77 y/o M admitted on 05/30/17 for Fever, SOB/Pneumonia. Chief Complaint: [] Interval history: May 30, 2017: History of present illness: Mr. Meza is a 77 year old man with a significant cardiac history, including [place] with cardiac arrest and AICD placement in 1994, status post CABG, congestive heart failure, atrial fibrillation whose reports that he has had a mild cough for about 2 months now. He notes some time over that. He has felt a little short of breath with activities, but nothing too impressive. About 4 days ago, he did develop some increasing shortness of breath and increased chest congestion. His said he ran a temperature of 102.6 for a couple of days. He is bringing up phlegm only occasionally, which is brownish in color and may have some blood streaks. He has noticed increased dyspnea with exertion , but is not sure if he also has orthopnea. He also reports some mild abdominal discomfort, which is fairly diffuse, over the same.. He says he normally has 1-2 bowel movements a day, and last bowel movement was yesterday. He denies significant chest pain or palpitations. He last saw his fisher dip net probably in December of this year, in [place], Dr. Adhikari at [facility]. He thinks his last stress test was a few years ago, and believes that looked fine. ER evaluation showed a chest x-ray consistent with congestive heart failure as well as a fairly dense right lower lobe infiltrate. He does drop his O2 saturations into the 80s with even minimal exertion. He is now admitted for further workup and treatment. He otherwise denies headaches or dizziness, new eye or ear symptoms, sore throat , chest pain or palpitations, nausea or vomiting, diarrhea or constipation. 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 His chart says he has type 2 diabetes, but he and his are both fairly insistent that he has never had diabetes. May 31: Today, the patient continues to have significantly productive cough. He is bringing up greenish phlegm. Nurses note he continues to be fairly drowsy, and often falls asleep mid sentence. He is maintaining O2 saturations. He did diurese some overnight. He does wake up when he is spoken to, but is quite drifty. He denies fever or chills, chest pain or palpitations. He thinks his shortness of breath is better , and his thinks he sounds better than before. He denies abdominal pain, nausea or vomiting, diarrhea or constipation or dysuria. He did say that he was hungry this morning. -Nurses are somewhat concerned about the possibility of aspiration, given his lethargy. 06/01: Seen by SERIALS LIBRARIAN yesterday and with compensatory swallowing strategies had less coughing with eating. HH SERIALS LIBRARIAN recommended. He is net neg 1.5L. Labs are stable. Sputum cx was contaminated with epithelial cells and gram stain shows mixed shelton. He is more awake today and continues to have a productive cough. Will attempt Shoemaker removal today. 06/02: patient seen and examined. No reported events. Continues to remain drowsy ,speaks a few words, lets his concerns known. but falls Sleep soon at bedside, plan of care reviwed with her pt bp was low this AM, his IV lasix has been stopped sputum cx is positive for staph aureus. STrated on IV vancomycin, sensitivities pending. still has cough with sputum production and has ongoing low grade temp. 06/03: Pt seen examined, no acute overnight events, some sob this AM when lying flat, sputum culture is MSSA, vanco stopped Patient on zosyn for aspiration pna, continue same, switch to augmentin at discharge clinically seems to be improving has significant dysphagia and ST is working with pt, educated on need to be compliant with reccommendations. bp soft this AM, will resume metoprolol, hold lasix. plan of care discussed with patient and his . 06/04: Pt seen examined, at bedside, no acute overnight events, pt this AM feeling better, more alert and awake, bp stable, still in AFib. He still has cough and shortness of breath, but clinically is improving I shared my concerns with im being considered for discharge home given his poor functional status, but and patient declined any other alternative. Stable to be transferred to med surg today Hold lasix for now, resume Chuy. 06/05: patient seen examined, no acute overnight issue, patient is in better spirits this AM, had some diarrhea overnight and Cdiff has been sent and is reported negative, no pain in abodmen, no blood in stools. Pt is on a probiotic. the patient bp is stable, lasix started today the patient remain of IV antibiotics for pna, and is working with PT to regain strength. Pertinent ROS: Denies headache, dizziness Denies chest pain, palpitations Denies cough or shortness of breath Denies abdominal pain, nausea or vomiting. Diarrhea present. - Constitutional Vitals: Vital Signs Temp Pulse Resp BP Pulse Ox 98.6 F 75 22 135/78 96 06/05/17 11:30 06/05/17 03:15 06/05/17 11:30 06/05/17 11:30 06/05/17 11:30 Period Temp Pulse Resp BP Sys/Ornelas Pulse Ox Last 24 Hr 97.2 F-98.6 F 70-82 18-24 111-143/62-78 94-96 Intake and Output 06/04/17 06/05/17 06/05/17 21:59 05:59 13:59 Intake Total 170 / 170 660 / 660 600 / 600 Output Total 76 / 76 250 / 250 100 / 100 Balance 94 / 94 410 / 410 500 / 500 Weight 252 lb 9.6 oz Intake & Output: Intake & Output 06/04/17 06/05/17 06/05/17 21:59 05:59 13:59 Intake Total 170 / 170 660 / 660 600 / 600 Output Total 76 / 76 250 / 250 100 / 100 Balance 94 / 94 410 / 410 500 / 500 Weight 252 lb 9.6 oz Intake: IV 50 / 50 100 / 100 Zosyn 3.375 gm In 50 / 50 100 / 100 Dextrose 5% in Water 50 ml @ 100 mls/hr IV Q6H [facility] Rx#:[id number] Oral 120 / 120 560 / 560 600 / 600 Output: Void Amount 75 / 75 250 / 250 100 / 100 # of times incontinent of 1 / 1 urine Other: Meal Dinner Percent of Meal Consumed 100% Feeding Ability Assist with Tray Set Up # Voids 1 1 # Bowel Movements 1 1 # of times incontinent of 1 Bowels Exam: Constitutional; Afebrile, cooperative, alert, not in distress. Eyes- No icterus, , No periorbital swelling Ears- Ext ear normal, hearing normal to conversation. Neck- Midline trachea, supple Respiratory system: Air Entry equal on both sides, No crackles or wheezing, no rhonchi. CVS- Rate normal rhythm irregular, S1,S2 heard, no gallop, no rub. Abdomen- Soft nontender abdomen, no organomegaly, no tenderness, no guarding or rigidity, INVESTIGATION OFFICER- AOOx3, moving all extremities, no gross focal deficit noted. Medical - PN: Obj Da - Labs CBC & Chem 7: 06/05/17 03:55 06/05/17 03:55 Labs: Abnormal Lab Results 06/05/17 06/05/17 06/05/17 03:55 03:55 03:55 RBC 3.91 L Hgb 11.0 L Hct 34.6 L RDW 17.5 H Lymph # (Auto) PT 18.8 H INR 1.5 H Sodium BUN 34 H Creatinine 1.3 H Glucose Magnesium GGT 159 H Albumin Albumin/Globulin Ratio 06/04/17 06/04/17 06/04/17 08:30 08:30 04:03 RBC 4.10 L Hgb 11.7 L Hct 36.4 L RDW 17.6 H Lymph # (Auto) PT 18.9 H INR 1.5 H Sodium BUN 33 H Creatinine 1.3 H Glucose 139 H Magnesium 2.6 H GGT 160 H Albumin Albumin/Globulin Ratio 0.9 L 06/03/17 06/03/17 06/03/17 04:06 04:06 04:06 RBC 3.99 L Hgb 11.4 L Hct 35.4 L RDW 17.6 H Lymph # (Auto) 1.4 L PT 19.2 H INR 1.6 H Sodium 146 H BUN 43 H Creatinine 1.6 H Glucose 112 H Magnesium 2.6 H GGT 143 H Albumin 3.1 L Albumin/Globulin Ratio 0.9 L Meds: Medications Acetaminophen (Tylenol) 650 mg PO Q6HP PRN PRN Reason: PAIN/FEVER > 101 Hydrocodone Bitart/Acetaminophen (Cleghorn 10/325mg) 1 tab PO Q4HP PRN PRN Reason: Pain Last Admin: 06/05/17 00:53 Dose: 1 tab Albuterol Sulfate (Ventolin) 2.5 mg NEB Q4HRT PRN PRN Reason: Shortness Of Breath Or Wheezing Albuterol Sulfate (Ventolin) 2.5 mg NEB Q6HRT INDRA Last Admin: 06/05/17 08:20 Dose: 2.5 mg Aspirin (Aspirin) 81 mg PO DAILY [facility] Last Admin: 06/05/17 08:49 Dose: 81 mg Clopidogrel Bisulfate (Plavix) 75 mg PO DAILY [facility] Last Admin: 06/05/17 08:49 Dose: 75 mg Dextrose (Dextrose 50%) 0 ml IV UD PRN PRN Reason: Hypoglycemia Diagnostic Test (Pha) (Accu-Chek) 1 each FS ACHS [facility] Last Admin: 06/05/17 11:56 Dose: 1 each Docusate Sodium (Colace) 100 mg PO BIDP PRN PRN Reason: Constipation Furosemide (Lasix) 40 mg PO BIDD [facility] Last Admin: 06/05/17 09:03 Dose: 40 mg Gabapentin (Neurontin) 300 mg PO TID [facility] Last Admin: 06/05/17 08:49 Dose: 300 mg Glucose (Insta-Glucose) 15 gm PO PRN PRN PRN Reason: Hypoglycemia Heparin Sodium (Porcine) (Heparin) 5,000 unit SQ Q12 [facility] Last Admin: 06/05/17 08:50 Dose: 5,000 unit Piperacillin Sod/Tazobactam (Sod 3.375 gm/ Dextrose) 50 mls @ 100 mls/hr IV Q6H [facility] Last Admin: 06/05/17 11:56 Dose: 100 mls/hr Insulin Human Lispro (Humalog) 0 unit SQ [facility] PRN Reason: Protocol Last Admin: 06/05/17 11:56 Dose: Not Given Lactobacillus Rhamnosus (Culturelle) 1 cap PO BID [facility] Last Admin: 06/05/17 08:50 Dose: 1 cap Lisinopril (Zestril) 5 mg PO QDAY [facility] Last Admin: 06/05/17 08:49 Dose: 5 mg Magnesium Hydroxide (Milk Of Magnesia) 30 ml PO DAILYP PRN PRN Reason: Constipation Metoprolol Succinate (Toprol Xl) 100 mg PO BID [facility] Last Admin: 06/05/17 08:49 Dose: 100 mg Nicotine (Nicoderm) 7 mg TOPICAL DAILY@1000 [facility] Last Admin: 06/05/17 10:35 Dose: 7 mg Ondansetron HCl (Zofran) 4 mg IV Q4HP PRN PRN Reason: Nausea And Vomiting Polyethylene Glycol (Miralax) 17 gm PO HSP PRN PRN Reason: Constipation Potassium Chloride (Kdur) 20 meq PO QAMCC [facility] Last Admin: 06/05/17 08:47 Dose: 20 meq Simvastatin (Zocor) 5 mg PO HS [facility] Last Admin: 06/04/17 21:59 Dose: 5 mg Sodium Chloride (Saline Flush) 10 ml IV Q8 [facility] Last Admin: 06/05/17 05:26 Dose: 10 ml Triamcinolone Acetonide (Kenalog Cream 0.1%) 1 dose TOPICAL BID [facility] Last Admin: 06/05/17 09:04 Dose: Not Given Warfarin Sodium (Coumadin Per Pharmacy) 1 order PO UD [facility] Warfarin Sodium (Coumadin) 2.5 mg PO ONCE@1400 ONE Stop: 06/05/17 14:01 Medical - PN: A/P - Time Spent With Patient Total time spent is greater than 50% in coordination of care (as documented) at patient's floor/unit and/or counseling patient: - Narrative A/P Narrative: A/P Right lower lobe pna: Likely staph pna, on zosyn 05/31, off vanco, sputum cx is MSSA< will switch to augmentin at discharge. clinically improving. anticipate d/ c in AM to home iwth oral abx. Acute CHF exacerbation : Pt doing well, home meds resumed , not in fluid overload any more, on beta hiram,s CHUY and lasix, bp is stable. CAD/ Cardiomyopathy/afib, h/o vtach and SCD S/p AICD, on coumadin with INR goal of 1.5? on ASA and plavix continue same. HR ok He is also on statin, which will be continued Peripheral neuropathy On gabapentin continue same. CKD stage 3, creat is 1.3 better than before, and improving monitor, expect slight worsening once CHUY and diuretics are resumed. Full code Hep Sq for DVT prophylaxis. Medical - PN: Qual - VTE Deep Vein Thrombosis/Pulmonary Embolism Present on Admission: No
[2017-06-05] MEDS ORDERED: WARFARIN 2.5 MG TABLET PO ONE (14:00)
[2017-06-05] MEDS: SIMVASTATIN 10 MG TABLET PO SCH (20:18)
[2017-06-06] MEDS: PIPERACILLIN SODIUM/TAZOBACTAM 3.375 GM in DEXTROSE 5% IN WATER 50 ML IV SCH ×2 (05:55→11:37)
[2017-06-06] MEDS: 0.9 % SODIUM CHLORIDE 10 ML SYRINGE IV SCH ×2 (05:55→14:30)
[2017-06-06 06:55] LABS: ALT/SGPT 16 U/l (0-40); Albumin 3.6 gm/dL (3.2-5.2); Albumin/Globulin Ratio 1.2 (1.0-2.3); Alkaline Phosphatase 82 U/L (39-117); Bilirubin,Direct < 0.2 mg/dL (0.0-0.3); Blood Urea Nitrogen 35 mg/dl (8-23); Gamma Glutamyl Transpeptidase 168 U/L (8-61); Magnesium 2.5 mg/dL (1.6-2.5); Uric Acid 5.7 mg/dL (2.5-8.0)
[2017-06-06] MEDS: ALBUTEROL SULFATE 2.5 MG/3 ML NEBULIZER NEB SCH ×2 (07:11→13:19)
[2017-06-06 07:51] LABS: Basophils # (Auto) 0.1 K/mcL (0.0-0.3); Basophils % (Auto) 0.8 % (0.0-2.0); Eosinophils # (Auto) 0.5 K/mcL (0.0-0.7); Granulocytes % (Auto) 63.6 % (38.0-78.0); Lymphocytes # (Auto) 2.1 K/mcL (1.5-4.8); Lymphocytes % (Auto) 23.6 % (15.5-49.0); Mean Cell Volume 90.4 fL (80.0-100.0); Mean Corpuscular HGB Conc 32.8 g/dL (31.0-36.0); Mean Corpuscular Hemoglobin 29.6 pg (26.0-34.0); Monocytes # (Auto) 0.5 K/mcL (0.1-0.9); Platelet Count 301 K/mcL (140-440); RBC 3.92 M/mcL (4.50-5.90); Red Cell Distribution Width 17.6 % (11.5-14.5)
[2017-06-06] MEDS: INSULIN LISPRO 1 UNIT/0.01 ML UNIT SQ SCH ×2 (07:58→11:25)
[2017-06-06] MEDS: FUROSEMIDE 40 MG TABLET PO SCH (07:58)
[2017-06-06] MEDS: POTASSIUM CHLORIDE 20 MEQ TABLET PO SCH (07:58)
[2017-06-06] MEDS: HEPARIN 5,000 UNIT/ML VIAL SQ SCH (09:27)
[2017-06-06] MEDS: LACTOBACILLUS 1 CAPSULE PO SCH (09:28)
[2017-06-06] MEDS: LISINOPRIL 10 MG TABLET PO SCH (09:28)
[2017-06-06] MEDS: GABAPENTIN 300 MG CAPSULE PO SCH ×2 (09:28→14:30)
[2017-06-06] MEDS: CLOPIDOGREL 75 MG TABLET PO SCH (09:28)
[2017-06-06] MEDS: ASPIRIN 81 MG TAB.CHEW PO SCH (09:28)
[2017-06-06] MEDS: METOPROLOL SUCCINATE 50 MG TAB.XL.24H PO SCH (09:28)
[2017-06-06] MEDS: TRIAMCINOLONE CREAM 0.1% 15G 1 DOSE TUBE TOPICAL SCH (09:29)
[2017-06-06] MEDS: NICOTINE 7 MG PATCH TOPICAL SCH (09:38)
[2017-06-06] MEDS ORDERED: WARFARIN 2.5 MG TABLET PO SCH (14:00)
--- NOTE | 2017-06-06 14:42 | Discharge Summary ---
Medical - DS: Prov Patient information: Note initiated : 06/06/17 at 2:39 pm Service Date, if different from initiated Date: [] Patient: Vinh Meza 77 y/o M admitted on 05/30/17 for Fever, SOB/Pneumonia. Chief Complaint: [] Date of admission: 05/30/17 12:37 Discharge date: 06/06/17 Primary care physician: Taran Alston Admitting clinician: Sylvia Rodríguez Discharging clinician: Carlos Torrez Medical - DS: Meds - Discharge Medications Prescriptions: Amoxicillin/Potassium Clav [Augmentin] 875 mg PO Q12H #10 tablet Ipratropium/Albuterol [Duoneb] 3 ml NEB Q6HP PRN #120 ampul.neb PRN Reason: Shortness Of Breath Or Wheezing Active and Home Medications: Home Medications pravastatin 10 mg tablet 5 mg PO QHS tab 05/10/15 [History Confirmed 05/30/17 Last Taken 05/30/17] lisinopril 10 mg tablet 5 mg PO QDAY #90 tab 08/10/16 [Rx Confirmed 05/30/17 Last Taken 05/29/17] Polyethylene Glycol 3350 [Miralax] 527 gm PO DAILY PRN 09/29/16 [History Confirmed 05/30/17 Last Taken Unknown] Potassium Chloride [K-Tab ER] 10 meq PO Q48H 09/29/16 [History Confirmed Last Taken Unknown] diphenhydramine 25 mg capsule 25 mg PO QHS PRN #60 cap 11/04/16 [Rx Confirmed Last Taken Unknown] lorazepam 0.5 mg tablet 0.5 mg PO BID #60 tab 11/04/16 [Rx Confirmed 05/30/17 Last Taken 05/30/17] metoprolol succinate ER 100 mg tablet,extended release 24 hr 100 mg PO BID #60 tab 11/24/16 [Rx Confirmed 05/30/17 Last Taken 05/30/17 1] clopidogrel 75 mg tablet 75 mg PO QDAY #90 tab 02/23/17 [Rx Confirmed 05/30/17 Last Taken 05/30/17] furosemide 40 mg tablet 40 mg PO BID #60 tab 03/23/17 [Rx Confirmed 05/30/17 Last Taken 05/30/17] gabapentin 100 mg capsule 300 mg PO TID #90 cap 05/24/17 [Rx Confirmed 05/30/17 Last Taken 05/30/17] hydrocodone 10 mg-acetaminophen 325 mg tablet 1 tab PO Q4H PRN #120 tab [Rx Confirmed 05/30/17 Last Taken Unknown] Aspirin [Adult Low Dose Aspirin EC] 81 mg PO DAILY 05/30/17 [History Confirmed 05/30/17 Last Taken 05/30/17] Triamcinolone Cream 0.1% 15G [Kenalog Cream 0.1%] 1 dose TOPICAL BID 05/30/17 [ History Confirmed 05/30/17 Last Taken 05/30/17] Warfarin [Coumadin] 5 mg PO MOWEFR@1400 05/30/17 [History Confirmed 06/05/17 Last Taken 05/30/17] Warfarin [Coumadin] 2.5 mg PO SUTUTHSA@1400 06/05/17 [History Confirmed Last Taken Unknown] Medical - DS: Hosp Hospital course: Mr. Meza is a 77 year old man with a significant cardiac history, including [place] with cardiac arrest and AICD placement in 1994, status post CABG, congestive heart failure, atrial fibrillation whose reports that he has had a mild cough for about 2 months now. He notes some time over that jasiel period he has felt a little short of breath with activities, but nothing too impressive. About 4 days ago before he presented to the hospital, he did develop some increasing shortness of breath and increased chest congestion. His said he ran a temperature of 102.6 for a couple of days. He is bringing up phlegm only occasionally, which is brownish in color and may have some blood streaks. He has noticed increased dyspnea with exertion, but is not sure if he also has orthopnea. He also reports some mild abdominal discomfort, which is fairly diffuse, over the same.. He was evaluated in [facility] ER and admitted to the hospital with the diagnosis of pneuonia Pneumonia: Treated with Zosyn and vancomycin initially, patient responded to treatment albiet slowly, his blood culture was negative, but sputum culture was positive for MSSA . He will be discharged on PO augmentin for additional 5 days. Shortness of breath: patient did have sob, which was attributed to chf and pna, the patient however did respond well to duoneb treatments too, I have prescribed duonebs for the patient every 6 hrs prn for now. He may benefit from outpatient evalution with a PFT to evaluate for possible COPD. Pt has a Nebulizer at home. CHF exacerbation: patient X ray showed pulm edema was diuresed and the patient responded well. He will resume his home dose of medications and diuretics. CAD/ Cardiomyopathy/ AFib: The patient cardiac conditions remained stable, he is in statin, dual antiplatlet agents as well as coumadin, which will continue. No changes made to his home regime. The patient was very weak and lethargic during the hospital stay, his condition improved after cessation of ativan. I have discontinued this medication for now. This can be restarted if needed as outpatient The patient was fairly weak during the hospital stay, and would have benefitted from SNF rehab, patient and his adamantly refused SNF placement. He will be given home therapy, and home nursing for med management. On discharge the patient is in good spirits, eager to go home. Discharge diagnosis: pneuonia, Chf exacerbation,. - Time Spent with Patient Total time spent providing and/or coordinating discharge services: Greater than 30 minutes Medical - DS: Exam - Constitutional Vitals: Vital Signs Temp Pulse Pulse Resp BP BP Pulse Ox 06/06/17 12:00 97.2 F 89 16 107/70 100 06/06/17 08:00 97.7 F 63 16 105/66 3 L 06/06/17 07:50 64 12 94 06/06/17 07:47 68 16 06/06/17 06:53 16 96 06/06/17 04:44 97.3 F 77 20 124/86 96 06/05/17 23:38 98.2 F 73 20 117/66 96 06/05/17 20:27 95 06/05/17 19:52 98.1 F 73 22 118/49 95 06/05/17 19:33 77 16 06/05/17 19:29 98 06/05/17 19:28 98 06/05/17 15:42 98.2 F 20 110/67 97 Intake and Output 06/06/17 06/06/17 06/06/17 05:59 13:59 21:59 Intake Total 150 / 150 290 / 290 Output Total 425 / 425 225 / 225 Balance -275 / -275 65 / 65 Intake: IV 50 / 50 50 / 50 Zosyn 3.375 gm In 50 / 50 50 / 50 Dextrose 5% in Water 50 ml @ 100 mls/hr IV Q6H [facility] Rx#:[id number] Oral 100 / 100 240 / 240 Output: Void Amount 425 / 425 225 / 225 Other: Meal Lunch Percent of Meal Consumed 100% Feeding Ability Assist with Tray Set Up # Voids 1 1 # Bowel Movements 1 Additional comments: Constitutional; Afebrile, cooperative, alert, not in distress. Eyes- No icterus, , No periorbital swelling Ears- Ext ear normal, hearing normal to conversation. Neck- Midline trachea, supple Respiratory system: Air Entry equal on both sides, No crackles or wheezing, no rhonchi. CVS- Rate rhythm irregular, S1,S2 heard, no gallop, no rub. Abdomen- Soft nontender abdomen, no organomegaly, no tenderness, no guarding or rigidity, RECYCLING COORDINATOR- AOOx3, moving all extremities, no gross focal deficit noted. Medical - DS: Data Labs on day of discharge: Labs from last 24 hours 06/06/17 06/06/17 06/06/17 04:55 04:55 04:55 WBC 8.8 RBC 3.92 L Hgb 11.6 L Hct 35.4 L MCV 90.4 MCH 29.6 MCHC 32.8 RDW 17.6 H Plt Count 301 MPV 8.2 Gran % 63.6 Lymph % (Auto) 23.6 Webster % (Auto) 6.0 Eos % (Auto) 6.0 Baso % (Auto) 0.8 Gran # 5.6 Lymph # (Auto) 2.1 Webster # (Auto) 0.5 Eos # (Auto) 0.5 Baso # (Auto) 0.1 PT 18.8 H INR 1.5 H Sodium 142 Potassium 4.5 Chloride 103 Carbon Dioxide 29 Anion Gap 10.0 BUN 35 H Creatinine 1.5 H GFR Calculation 44 Glucose 93 Uric Acid 5.7 Calcium 9.6 Phosphorus 3.9 Magnesium 2.5 Total Bilirubin 0.4 Direct Bilirubin < 0.2 GGT 168 H AST 18 ALT 16 Alkaline Phosphatase 82 Lactate Dehydrogenase 233 Total Protein 6.6 Albumin 3.6 Globulin 3.0 Albumin/Globulin Ratio 1.2 Triglycerides 97 Medical - DS: A/P - Patient/Caregiver Discharge Instructions Activity: as per physical therapy, increase activity as tolerated Diet: Cardiac, Consistent Carbohydrate Additional Instructions: You were admitted to the hospital with pneumonia, and Congestive heart failure You will need antibiotics for 5 more days, You have been given a prescription for nebulizer treatment, use it every 6 hrs as needed if you are short of breath Follow up with your regular doctor/ PCP in 7 days GO to the ER if fever, worsening shortness of breath or any other symptoms. You need to follow Speech recommendations to avoid further episodes of Pneumonia. Speech therapy for home has been ordered for you I have stopped the lorazepam (ativan) as it was making you drowsy. Do not take this medication untill you speak with your regular doctor first. - Follow up Plan Follow up with: Taran Alston PA-C [Primary Care Provider] - Disposition: Home Health Service Prognosis: Fair Rehab Potential: Fair I certify that the patient requires SNF services: No Overall status at discharge: patient is progressing back to baseline Medical - DS: Qual - VTE Deep Vein Thrombosis/Pulmonary Embolism Present on Admission: No
== END 2017-06-06 16:15 | disposition home health service (06) | DRG 177 ==
LOC: ED 09:58 → ICU 12:37 → MEDSUR 06-04 17:26
PROVIDERS: ADMIT Internal Medicine; ATTEND Internal Medicine